=== PATIENT | female | born 1965 | race Caucasian/White ===

== ENCOUNTER 2016-12-09 10:01 | Inpatient (IN) | payer SELFPAY ==
[2016-12-09] VITALS (8 sets, daily range): BP systolic 123–141; BP diastolic 69–82; PULSE 86–95; RESP 14–18; TEMP 97.1–100.8; O2SAT 92–94; Ht 160 cm; Wt 134.1 kg
[~2016-12-09] VITALS: Ht 160 cm; Wt 134.1 kg
[~2016-12-09 10:01] MED LIST: ALBU18HF2 IH; FLUO20CA30 PO; FLUT1DIS3 ORAL INH; LISI-625 PO; RANI150C4 PO
--- OUTSIDE RECORDS SUMMARY | 2016-12-09 10:05 | XMS REPORT ---
Author Author Anyi Johnson [facility] eClinicalWorks Address Unknown Phone Unavailable Care Team Providers Care Manager Country Name Role Phone Anyi Johnson CP Unavailable Allergies No Known Allergies Problems Problem Type Condition Code Onset Dates Condition Status Problem Screening for malignant neoplasm of the rectum V76.41 Active Problem Morbid obesity 278.01 Active Problem Hypertension, benign 401.1 Active Medications No Known Medications Results No Known Results Summary Purpose eClinicalWorks Submission
--- OUTSIDE RECORDS SUMMARY | 2016-12-09 10:06 | XMS REPORT | Continuity of Care Document ---
Author Author [facility] Organization [facility] Address Unknown Phone Unavailable Support Name Relationship Address Phone GUEROVILMA ESCOBEDO DO Caregiver [facility] [address] [address] AGNIESZKA LINDSAY MD Caregiver [address] [place] [address] [phone] KATELIN GOODMAN APRN Caregiver [address] [place] [address] [phone] SHILOH BLEDSOE Next Of Kin [address] [id number] Insurance Providers Payer Name Policy Number Subscriber Name Relationship Self Pay Lori James 20 Self Problems Medical Problems Problem Onset Date Status Left flank pain Unknown Active Left flank pain Unknown Active Abrasion Unknown Active Knee contusion Unknown Active Medications Medication Dose Route Sig Days/Qty Instructions Order Date Discontinued Date Status [Cenesta] 1 PO DAILY 07/10/08 04/30/10 Discontinued Fluticasone Propionate 12 Gm IH TWICE A DAY 07/10/08 04/30/10 Discontinued [Albuterol Inhaler] NEEDED 07/10/08 04/30/10 Discontinued Propoxyphene/Acetaminophen 1 Tab PO 07/10/08 12/10/08 Discontinued Albuterol 17 Gm IH 04/30/10 07/29/11 Discontinued Hydrocodone Bit/Acetaminophen 1 Tab PO Every 6 Hours 07/10/08 Discontinued Sucralfate 1 G PO FOUR TIMES DAILY 07/10/08 04/30/10 Discontinued Fluoxetine Hcl 20 Mg PO DAILY 04/30/10 07/29/11 Discontinued [Percocet] 12/10/08 12/11/08 Discontinued Hydrocodone Bit/Acetaminophen 1 - 2 Tab PO NEEDED 12/11/08 Discontinued Albuterol Sulfate 8.5 Gm IH NEEDED 04/30/10 07/29/11 Discontinued [Premarin] 04/30/10 07/29/11 Discontinued Fluoxetine Hcl 20 Mg PO DAILY 04/03/12 12/02/14 Discontinued Albuterol Sulfate 18 Gm IH NEEDED 04/03/12 Active Fluticasone Propionate 2 Puff IH DAILY 04/03/12 Active [Ranitidine] 12/02/14 Active Cyclobenzaprine HCl 10 Mg PO THREE TIMES A DAY PRN MUSCLE SPASM 40 Qty 12/02/14 Active Social History Social History Problem Response Recorded Date/Time Hx Substance Use No 12/06/2014 12:24pm Hx Alcohol Use Y RARE 12/06/2014 12:24pm Tobacco Usage none 12/02/2014 7:53am Query Response Start Date Stop Date Smoking Status Never smoker Hospital Discharge Instructions No hospital discharge instructions. Plan of Care No plan of care. Functional Status Query Response Date Recorded Physical Hygiene Self December 06, 2014 12:24pm Disabilities Visual December 06, 2014 12:24pm Devices Used Glasses December 06, 2014 12:24pm Dressing Self December 06, 2014 12:24pm Ambulation Self December 06, 2014 12:24pm Diet Self December 06, 2014 12:24pm Mental Status Alert Oriented December 06, 2014 12:24pm Disabilities Visual December 06, 2014 12:24pm Devices Used Glasses December 06, 2014 12:24pm Physical Hygiene Self December 06, 2014 12:24pm Dressing Self December 06, 2014 12:24pm Ambulation Self December 06, 2014 12:24pm Diet Self December 06, 2014 12:24pm Allergies, Adverse Reactions, Alerts Allergen Type Severity Reaction Status Last Updated Penicillin Allergy Unknown HIVES Active 12/06/14 Aspirin Adverse Reaction Unknown N/V Active 12/06/14 Loracarbef Allergy Severe AIRWAY SWELLING Active 12/06/14 Lansoprazole Allergy Unknown ECTOPIC BEATS Active 12/06/14 Immunizations Name Given Type Hx Influenza Vaccination No Historical Hx Pneumococcal Vaccination No Historical Hx Tetanus, Diptheria, Pertussis N UNKNOWN Historical Hx Influenza Vaccination No Historical Hx Tetanus, Diptheria, Pertussis N UNKNOWN Historical Vital Signs Acute Vital Signs Vital Response Date/Time Temperature (Fahrenheit) 97.5 deg F (96.8 - 99.1) Temperature (Calculated Celsius) 36.21961 degrees C (36.0 - 37.3) Pulse Rate (adult) 65 bpm (60 - 100) Respiratory Rate 16 breaths/min (10 - 20) O2 Sat by Pulse Oximetry 98 % (90 - 100) Blood Pressure 138/78 mm Hg Height 5 ft 2 in Weight 394 lb Body Mass Index 72.0 kg/m^2 Results Test Source Date Result Interp. Ref. Range Comments Activated Partial Thromboplast Time June 14, 2012 3:26pm 33.7 SEC N 24-36 Are you ordering this test to rule out VTE Yes Alanine Aminotransferase (ALT/SGPT) December 02, 2014 7:55am 24 U/L N 9-52 Albumin December 02, 2014 7:55am 4.2 G/DL N 3.5-5.0 Albumin/Globulin Ratio December 02, 2014 7:55am 1.2 RATIO N 1.1-2.2 Alkaline Phosphatase December 02, 2014 7:55am 92 U/L N 38-126 Amylase Level December 02, 2014 7:55am 72 U/L N 30-110 Anion Gap December 02, 2014 7:55am 15 MEQ/L N 5-15 Aspartate Amino Transf (AST/SGOT) December 02, 2014 7:55am 19 U/L N 14-36 B-Type Natriuretic Peptide July 29, 2011 6:40am < 15 PG/ML L 15-100 BCR/abl Major (Quant PCR) March 13, 2008 4:02pm Sent out - BUN/Creatinine Ratio December 02, 2014 7:55am 20 RATIO N 6-26 Band Neutrophils # December 02, 2014 7:55am 0.5 T/MM3 - Band Neutrophils % December 02, 2014 7:55am 3.0 % N 0-6 Basophils # (Auto) June 14, 2012 3:26pm 0.0 T/MM3 N 0-0.2 Are you ordering this test to rule out VTE Yes Basophils # (Manual) April 30, 2010 3:41am 0.0 T/MM3 N 0-0.2 Basophils % (Manual) April 30, 2010 3:41am 0.0 % N 0-2 Basophils (%) (Auto) June 14, 2012 3:26pm 0.4 % N 0-2 Are you ordering this test to rule out VTE Yes Blood Urea Nitrogen December 02, 2014 7:55am 16.0 MG/DL N 7-17 C-Reactive Protein March 13, 2008 4:02pm 16.2 MG/L H 3-10 Calcium Level December 02, 2014 7:55am 9.0 MG/DL N 8.4-10.2 Calculated Osmolality December 02, 2014 7:55am 279 MOSM/KG N 261-280 Carbon Dioxide Level December 02, 2014 7:55am 27 MEQ/L N 22-30 Chemistry Specimen Hemolysis December 02, 2014 7:55am < 15 0-25 0-25: No Hemolysis.26-70: Slight Hemolysis - can falsely elevate K and Urine Protein. 71-285: Moderate Hemolysis - can falsely elevate K, Troponin I, CA 19-9, PTH, CSF GLucose, and Urine Protein, and can falsely decrease Phenytoin. 286-999: Gross Hemolysis - can falsely elevate K, Troponin I, CA 19-9, PTH, CSF Glucose, and Urine Protine, and can falsely decrease Phenytoin. Recommend specimen recollection. Chloride Level December 02, 2014 7:55am 102 MEQ/L N 98-107 Cholesterol Level June 15, 2012 9:25am 184 MG/DL N 132-199 Cholesterol/HDL Ratio June 15, 2012 9:25am 4.2 RATIO H 0-4.0 Conjugated Bilirubin June 14, 2012 3:26pm 0.00 MG/DL N 0.00-0.30 Creatinine December 02, 2014 7:55am 0.8 MG/DL N 0.7-1.2 D-Dimer June 14, 2012 3:26pm 208 NG/ML N 0-230 <224 NG/ML= PRESUMPTIVE NEGATIVE FOR PE OR DVT>224 NG/ML=ADDITIONAL EVALUATION FOR PE OR DVT RECOMMENDED Differential Total Cells Counted June 07, 2008 12:26pm 100 % - Eosinophils # (Auto) June 14, 2012 3:26pm 0.2 T/MM3 N 0-0.5 Are you ordering this test to rule out VTE Yes Eosinophils # (Manual) December 02, 2014 7:55am 0.5 T/MM3 N 0-0.5 Eosinophils % (Manual) December 02, 2014 7:55am 3.0 % N 0-4 Eosinophils (%) (Auto) June 14, 2012 3:26pm 1.7 % N 0-4 Are you ordering this test to rule out VTE Yes Erythrocyte Sedimentation Rate March 13, 2008 4:02pm 25 MM/HR - Ferritin March 13, 2008 4:02pm 72.8 NG/ML N 6-137 Flow Cytometry Specimen March 13, 2008 4:02pm Sent out - Globulin December 02, 2014 7:55am 3.5 G/DL N 2.4-3.6 Glomerular Filtration Rate Calc December 02, 2014 7:55am 77 - Glucose Level December 02, 2014 7:55am 108 MG/DL N 65-110 Group A Streptococcus Screen April 30, 2010 3:35am Negative - Strep culture confirmation to follow HDL Cholesterol Direct June 15, 2012 9:25am 44 MG/DL N 40-60 Helicobacter pylori IgG Antibody June 07, 2008 12:26pm Sent out - Hematocrit December 02, 2014 7:55am 44.4 % N 36-46 Hemoglobin December 02, 2014 7:55am 14.4 GM/DL N 12-16 Human Chorionic Gonadotropin, Qual September 10, 2011 2:08pm Negative - Icterus Index December 02, 2014 7:55am < 2 0-7 Immature Granulocyte # (Auto) June 14, 2012 3:26pm 0.02 T/MM3 N 0.00-0.03 Are you ordering this test to rule out VTE Yes Immature Granulocyte % (Auto) June 14, 2012 3:26pm 0.2 % N 0.0-0.5 Are you ordering this test to rule out VTE Yes Influenza Virus Types A,B Antigen December 28, 2007 9:52am Negative - STAT CALL RESULTS TO DR ANGEL LDL Cholesterol, Calculated June 15, 2012 9:25am 140 N 66-159 Lab Scanned Report June 15, 2012 1:48pm LAB TEST FORM REQUEST [id number] - Lipase December 02, 2014 7:55am 162 U/L N 23-300 Lymphocytes # (Auto) June 14, 2012 3:26pm 5.4 T/MM3 H 1-4.8 Are you ordering this test to rule out VTE Yes Lymphocytes # (Manual) December 02, 2014 7:55am 8.4 T/MM3 H 1-4.8 Lymphocytes % (Manual) December 02, 2014 7:55am 54.0 % H 23-45 Lymphocytes (%) (Auto) June 14, 2012 3:26pm 48.3 % H 23-45 Are you ordering this test to rule out VTE Yes Mean Corpuscular Hemoglobin December 02, 2014 7:55am 30.3 UUG N 26-34 Mean Corpuscular Hemoglobin Concent December 02, 2014 7:55am 32.4 GM/DL N 31-37 Mean Corpuscular Volume December 02, 2014 7:55am 93.5 UM3 N 80-100 Mean Platelet Volume December 02, 2014 7:55am 9.6 UM3 N 9.4-12.4 Monocytes # (Auto) June 14, 2012 3:26pm 1.0 T/MM3 H 0-0.8 Are you ordering this test to rule out VTE Yes Monocytes # (Manual) September 10, 2011 2:08pm 0.5 T/MM3 N 0-0.8 Are you ordering this test to rule out VTE Yes Monocytes % (Manual) September 10, 2011 2:08pm 3.0 % N 0-9.0 Are you ordering this test to rule out VTE Yes Monocytes (%) (Auto) June 14, 2012 3:26pm 8.9 % N 0-9.0 Are you ordering this test to rule out VTE Yes Monoscreen April 30, 2010 3:41am Negative - QZ-Eak-G-Type Natriuretic Peptide June 14, 2012 3:26pm 38 PG/ML N 0 -175 Rule in cut points: <50 years old=450; 50-75 years old=900; >75 years old=1800; When utilizing ProBNP rule-in cut points, adjustment for impaired renal function is typically not required. Neutrophils # (Auto) June 14, 2012 3:26pm 4.6 T/MM3 N 1.8-7.7 Are you ordering this test to rule out VTE Yes Neutrophils # (Manual) December 02, 2014 7:55am 6.2 T/MM3 N 1.8-7.7 Neutrophils % (Manual) December 02, 2014 7:55am 40.0 % N 33-66 Neutrophils (%) (Auto) June 14, 2012 3:26pm 40.5 % N 33-66 Are you ordering this test to rule out VTE Yes Platelet Count December 02, 2014 7:55am 455 T/MM3 H 130-400 Potassium Level December 02, 2014 7:55am 3.9 MEQ/L N 3.6-5 Prothromb Time International Ratio June 14, 2012 3:26pm 0.94 N 0.86 -1.10 THERAPUTIC RANGE=2.00-3.00 FOR ANTI-THROMBOSIS THERAPUTIC RANGE=2.50- 3.50 FOR IMPLANTED VALVE RDW Standard Deviation December 02, 2014 7:55am 48.9 FL N 36.9-50.2 Red Blood Count December 02, 2014 7:55am 4.75 M/MM3 N 4.00-5.20 Red Cell Morphology Comment December 02, 2014 7:55am Normal - Sodium Level December 02, 2014 7:55am 144 MEQ/L N 134-144 Tests Not Done November 25, 2009 4:00pm Not done - Thyroid Stimulating Hormone (TSH) June 15, 2012 9:25am 1.84 MIU/L N 0.47-4.68 Total Bilirubin December 02, 2014 7:55am 0.50 MG/DL N 0.20-1.30 Total Protein December 02, 2014 7:55am 7.7 G/DL N 6.3-8.2 Triglycerides Level June 15, 2012 9:25am 151 MG/DL H 35-135 Troponin I June 14, 2012 3:26pm < 0.012 ng/ml 0-0.12 Turbidity December 02, 2014 7:55am < 20 0-20 Unconjugated Bilirubin June 14, 2012 3:26pm 0.20 MG/DL N 0.00-1.10 Urinalysis Comment December 02, 2014 8:50am Microscopic not ind. - Has specimen been collected/obtained? Y Urine Bilirubin December 02, 2014 8:50am Negative - Has specimen been collected/obtained? Y Urine Blood December 02, 2014 8:50am Negative - Has specimen been collected/obtained? Y Urine Collection Type December 02, 2014 8:50am Cleancatch-midstream - Has specimen been collected/obtained? Y Urine Color December 02, 2014 8:50am Yellow - Has specimen been collected/obtained? Y Urine Glucose (UA) December 02, 2014 8:50am Negative - Has specimen been collected/obtained? Y Urine Ketones December 02, 2014 8:50am Negative - Has specimen been collected/obtained? Y Urine Leukocyte Esterase December 02, 2014 8:50am Negative - Has specimen been collected/obtained? Y Urine Nitrite December 02, 2014 8:50am Negative - Has specimen been collected/obtained? Y Urine Protein December 02, 2014 8:50am Negative - Has specimen been collected/obtained? Y Urine RBC March 09, 2008 10:48pm Not Performed - Urine Specific [place] December 02, 2014 8:50am >=1.030 H - Has specimen been collected/obtained? Y Urine Turbidity December 02, 2014 8:50am Clear - Has specimen been collected/obtained? Y Urine Urobilinogen December 02, 2014 8:50am 0.2 EU/DL - Has specimen been collected/obtained? Y Urine WBC March 09, 2008 10:48pm Not Performed - Urine pH December 02, 2014 8:50am 5.5 - Has specimen been collected/ obtained? Y VLDL Cholesterol June 15, 2012 9:25am 30.2 MG/DL H 0-28 White Blood Count December 02, 2014 7:55am 15.5 T/MM3 H 4.5-11.0 Blood Culture Blood April 30, 2010 3:41am NO GROWTH AFTER 5 DAYS Wet Prep Vagina January 10, 2012 2:45pm Group A Streptococcus Culture Throat April 30, 2010 4:45am Helicobacter pylori Rapid Urease Gastric Biopsy July 10, 2008 11:09am Urine Culture Urine, Clean Catch Voided January 04, 2012 11:30am Mixed Gram Positive Organisms Name: LORI JAMES Unit #: [id number] : [id number] Sex: F Loc / Svc: ED DOS: 12/06/14 Signed Report #: [id number] DIAGNOSTIC IMAGING REPORT TYPE OF EXAM: KNEE RIGHT 3 VIEWS Dictated By: ARJUN KNOX MD Indication: ITS.REASON: pain distal of patella after fall KNEE RIGHT 3 VIEWS Comparison: None Findings: There is no acute fracture, dislocation or malalignment identified. There is ] minimal lateral compartment spurring and patellofemoral joint spurring. A significant joint effusion is not seen. The left sunrise view was also obtained. Impression: No definite evidence for fracture is identified. . Procedures Procedure Status Date Provider(s) HYDRATE IV INFUSION ADD-ON completed 12/02/14 THER/PROPH/DIAG INJ IV PUSH completed 12/02/14 TX/PRO/DX INJ NEW DRUG ADDON completed 12/02/14 TX/PRO/DX INJ NEW DRUG ADDON completed 12/02/14 Encounters Encounter Location Date/Time Departed Emergency Room [facility] 12/06/14 12:11pm Departed Emergency Room [facility] 12/02/14 7:31am Recent Diagnosis
--- OUTSIDE RECORDS SUMMARY | 2016-12-09 10:06 | XMS REPORT | Continuity of Care Document ---
Author Author [facility] Organization [facility] Address Unknown Phone Unavailable Support Name Relationship Address Phone KATELIN GOODMAN APRN Caregiver [address] [place] [address] Unavailable BROOKE GARDNER MD Caregiver [address] [facility] [place] [phone] Unavailable SHA COSTELLO Next Of Kin [address] [place] [address] Insurance Providers Guarantor Lori James Address [address] [place] [address] Email [email or web address] Payer Self Pay Subscriber's Name Lori James Relationship 18 Self Chief Complaint and Reason for Visit Chief Complaint Abdominal Pain Reason for Visit Bilateral upper abdominal pain Problems Active Problems Medical Problem Onset Date Status Abrasion Unknown Acute Abrasion Unknown Acute Asthma exacerbation Unknown Acute Cough Unknown Acute Knee contusion Unknown Acute Left flank pain Unknown Acute Left flank pain Unknown Acute Low back pain Unknown Acute Past Problems Medical Problem Onset Date Bilateral upper abdominal pain Unknown Umbilical hernia without obstruction or gangrene Unknown Ventral hernia without obstruction or gangrene Unknown Medications Current Home Medications Medication Dose Units Route Directions Days Qty Instructions Start Date Albuterol Sulfate (Ventolin Hfa) 18 Gm Hfa.aer.ad 1 Puff Inhalation As Needed 04/03/12 Fluoxetine Hcl (Prozac) 20 Mg Capsule 20 Mg Oral Daily 02/24/15 Fluticasone/Salmeterol (Advair 250-50 Diskus) 1 Disk W/Dev Inhaler 2 Puff Oral Inhalation Daily 10/21/15 Lisinopril 5 Mg Tablet 5 Mg Oral Bedtime 10/21/15 Ranitidine Hcl 150 Mg Capsule 150 Mg Oral Daily as needed for Prn Orders 02/24/15 Past Home Medications Medication Directions Ordered Status Albuterol 17 Gm Aer.refill, 17 Gm Inhalation 04/30/10 Discontinued Albuterol Inhaler , As Needed 07/10/08 Discontinued Albuterol Sulfate (Proair Hfa) 8.5 Gm Aerosol, 8.5 Gm Inhalation As Needed Discontinued Cenesta , 1 Oral Daily 07/10/08 Discontinued Fluoxetine Hcl (Prozac) 20 Mg Capsule, 20 Mg Oral Daily 04/03/12 Discontinued Fluoxetine Hcl (Prozac) 20 Mg Capsule, 20 Mg Oral Daily 04/30/10 Discontinued Fluticasone Propionate (Flovent Hfa 110MCG) 12 Gm Inhaler, 12 Gm Inhalation Twice A Day 07/10/08 Discontinued Hydrocodone Bit/Acetaminophen (Lortab 7.5-500 Tablet) 1 Tab Tablet, 1 - 2 Tab Oral As Needed 12/11/08 Discontinued Hydrocodone Bit/Acetaminophen (Lortab 5/500 Tablet) 1 Tab Tablet, 1 Tab Oral Every 6 Hours 07/10/08 Discontinued Percocet , 12/10/08 Discontinued Premarin , 04/30/10 Discontinued Propoxyphene/Acetaminophen (Darvocet-N 100 Tablet) 1 Tab Tablet, 1 Tab Oral 07/10/08 Discontinued Sucralfate (Carafate) 1 G Tablet, 1 G Oral Four Times Daily 07/10/08 Discontinued Social History Social History Problem Response Recorded Date/Time Onset Date Status Chewing Tobacco Status No 06/10/2016 7:01pm Not Applicable Not Applicable Hx Substance Use No 06/10/2016 7:01pm Not Applicable Not Applicable Hx Alcohol Use No 06/10/2016 7:01pm Not Applicable Not Applicable Has the pt used tobacco in the last 12 months No 06/10/2016 8:25am Not Applicable Not Applicable Tobacco Usage none 12/02/2014 7:53am Not Applicable Not Applicable Query Response Start Date Stop Date Smoking Status Never smoker Hospital Discharge Instructions No hospital discharge instructions. Plan of Care Discharge Date 06/10/16 7:55pm Disposition 01 DISCHARGED HOME, SELF-CARE Condition at Discharge Improved Instructions/Education Provided Avoiding Gas-producing Foods Colonoscopy Prescriptions See Medication Section Referrals KATELIN GOODMAN APRN Address: [address] [place] [phone] Additional Instructions/Education Walk as much as you can to help relief gas. May continue to take OTC simethicone or Gas-X. Stay hydrated. Avoid foods that are gas producing. Follow as needed with Dr. Marc. Care Plan and Goals Physician Care Plan Problem: Bilateral Upper abdominal pain Goal: Follow up with primary care provider Instructions: Take medications and follow care plan as discussed/written Functional Status No functional status results. Allergies, Adverse Reactions, Alerts Allergen Type Severity Reaction Status Last Updated Penicillin Allergy Unknown HIVES Active 06/10/16 Aspirin Adverse Reaction Unknown N/V Active 06/10/16 Loracarbef Allergy Severe AIRWAY SWELLING Active 06/10/16 Lansoprazole Allergy Unknown ECTOPIC BEATS Active 06/10/16 Immunizations Query Response on File Recorded Date/Time Hx Influenza Vaccination No 06/09/16 3:58pm Hx Pneumococcal Vaccination No 06/09/16 3:58pm Hx Tetanus, Diptheria, Pertussis N UNKNOWN 12/06/14 12:24pm Hx Influenza Vaccination No 06/09/16 3:58pm Hx Tetanus, Diptheria, Pertussis N UNKNOWN 12/06/14 12:24pm Influenza Vaccine Hx NONE 06/10/16 7:01pm Vital Signs Acute Vital Signs Vital Response Date/Time Temperature (Fahrenheit) 98.0 deg F (96.8 - 99.1) 06/10/2016 7:55pm Temperature (Calculated Celsius) 36.75331 degrees C (36.0 - 37.3) 06/10/2016 7:55pm Temperature Source Temporal 06/10/2016 10:00am Pulse Rate (adult) 88 bpm (60 - 100) 06/10/2016 7:55pm Respiratory Rate 16 breaths/min (10 - 20) 06/10/2016 7:55pm O2 Sat by Pulse Oximetry 95 % (90 - 100) 06/10/2016 7:55pm Oxygen Delivery Method Room Air 06/10/2016 10:45am Blood Pressure 140/68 mm Hg 06/10/2016 7:55pm Blood Pressure Source Automatic Cuff 06/10/2016 10:45am Height (Feet) 5 feet 06/10/2016 6:23pm Height (Inches) 3.00 inches 06/10/2016 6:23pm Weight (Kilograms) 132.400 kg 06/10/2016 6:23pm Body Mass Index (BMI) 51.0 06/10/2016 6:23pm Results No known relevant diagnostic tests, laboratory data and/or discharge summary. Procedures Procedure Status Date Provider(s) Colonoscopy Completed 06/10/16 ELIZABETH MARC MD Esophagogastroduodenoscopy (EGD) with closed biopsy Completed 06/10/16 ELIZABETH MARC MD Encounters Encounter Location Arrival/Admit Date Discharge/Depart Date Attending Provider Departed Emergency Room [facility] 06/10/16 6:17pm 06/10/16 7: 55pm BROOKE GARDNER MD Departed [facility] Day [facility] 06/10/16 8:19am 06/10/16 10 :46am ELIZABETH MARC MD Registered Clinic [facility] 06/01/16 8:47am KATELIN GOODMAN APRN Registered [facility] 05/27/16 4:06pm DELMA DEMARCO APRN Recent Diagnosis
--- OUTSIDE RECORDS SUMMARY | 2016-12-09 10:07 | XMS REPORT | Continuity of Care Document ---
Author Author [facility] Organization [facility] Address Unknown Phone Unavailable Support Name Relationship Address Phone RAKAN VELAZQUEZ MD Caregiver [address] [place] [address] [place] [address] AGNIESZKA LINDSAY MD Caregiver [address] [place], [place] [phone] SHILOH BLEDSOE Next Of Kin [address] [place], [place] [phone] Insurance Providers Payer Name Policy Number Subscriber Name Relationship Self Pay Lori James 18 Self Advance Directives Directive Response Recorded Date/Time Advanced Directives Type None 12/02/14 8:37am Problems Medical Problems Problem Onset Date Status Left flank pain Unknown Active Left flank pain Unknown Active Medications Medication Dose Route Sig [...] PRN MUSCLE SPASM 40 Qty 12/02/14 Active Tramadol HCl 1-2 Tab PO Q6H/0300,0900,1500,2100 PRN flank pain 20 Qty 12/02/14 Active Social History Social History Problem Response Recorded Date/Time Hx Substance Use No 12/02/2014 8:32am Hx Alcohol Use No 12/02/2014 8:32am Tobacco Usage none 12/02/2014 7:53am Query Response Start Date Stop Date Smoking Status Never smoker Hospital Discharge Instructions No hospital discharge instructions. Plan of Care No plan of care. Functional Status Query Response Date Recorded Physical Hygiene Self December 02, 2014 8:32am Disabilities Visual December 02, 2014 8:32am Devices Used Glasses December 02, 2014 8:32am Dressing Self December 02, 2014 8:32am Ambulation Self December 02, 2014 8:32am Diet Self December 02, 2014 8:32am Mental Status Alert December 02, 2014 8:52am Disabilities Visual December 02, 2014 8:32am Devices Used Glasses December 02, 2014 8:32am Physical Hygiene Self December 02, 2014 8:32am Dressing Self December 02, 2014 8:32am Ambulation Self December 02, 2014 8:32am Diet Self December 02, 2014 8:32am Allergies, Adverse Reactions, Alerts Allergen Type Severity Reaction Status Last Updated Penicillin Allergy Unknown HIVES Active 12/02/14 Aspirin Adverse Reaction Unknown N/V Active 12/02/14 Loracarbef Allergy Severe AIRWAY SWELLING Active 12/02/14 Lansoprazole Allergy Unknown ECTOPIC BEATS Active 12/02/14 Immunizations Name Given Type Hx Influenza Vaccination No Historical Hx Pneumococcal Vaccination No Historical Hx Tetanus, Diptheria, Pertussis Y UNKNOWN Historical Hx Influenza Vaccination No Historical Hx Tetanus, Diptheria, Pertussis Y UNKNOWN Historical Vital Signs Acute Vital Signs Vital Response Date/Time Temperature (Fahrenheit) 97.7 deg F (96.8 - 99.1) Temperature (Calculated Celsius) 36.44879 degrees C (36.0 - 37.3) Pulse Rate (adult) 95 bpm (60 - 100) Respiratory Rate 20 breaths/min (10 - 20) O2 Sat by Pulse Oximetry 95 % (90 - 100) Blood Pressure 131/72 mm Hg Height 5 ft 2 in Weight 292 lb Body Mass Index 53.0 kg/m^2 Results Test Source Date Result Interp. [...] 15, 2012 1:48pm LAB TEST FORM REQUEST [id number] - Lipase December 02, 2014 7:55am 162 [...] Monoscreen April 30, 2010 3:41am Negative - WG-Hmg-J-Type Natriuretic Peptide June 14, 2012 3:26pm 38 [...] 2008 10:48pm Not Performed - Urine Specific [place] December 02, 2014 8:50am >=1.030 H - [...] Positive Organisms Name: LORI JAMES Unit #: [id number] : 1965 Sex: F Loc / Svc: ED DOS: 12/02/14 Signed Report #: [id number] DIAGNOSTIC IMAGING REPORT TYPE OF EXAM: CT RENAL W/O CONTRAST Dictated By: MANJIT PINTO MD Indication: ITS.REASON: left flank pain CT RENAL W/O CONTRAST: Comparison: None Technique: Axial CT images were performed through the abdomen and pelvis without intravenous contrast. Findings: The lung bases are clear. The unenhanced liver appears grossly normal. The gallbladder, pancreas and adrenal glands are within normal limits. The spleen appears to be surgically absent. Fat containing umbilical hernia. Kidneys show no stone disease or hydronephrosis. No ureteral stones. Bladder is decompressed and unremarkable. The uterus is surgically absent. No free fluid. No evidence of bowel obstruction. Small and large bowel are unremarkable. Bone windows are unremarkable. Impression: No urolithiasis or clear etiology for the patient's left flank pain. . Procedures No known history of procedures. Encounters Encounter Location Date/Time Registered Emergency Room [facility] 12/02/14 7:31am Recent Diagnosis
--- OUTSIDE RECORDS SUMMARY | 2016-12-09 10:07 | XMS REPORT ---
Author Author Anyi Johnson [facility] eClinicalWorks Address Unknown Phone Unavailable Care Team Providers Care Treatment Coordinator Name Role Phone Anyi Johnson CP Unavailable Allergies No Known Allergies Problems Problem Type Condition Code Onset Dates Condition Status Problem Screening for malignant neoplasm of the rectum V76.41 Active Problem Morbid obesity 278.01 Active Problem Hypertension, benign 401.1 Active Medications No Known Medications Results No Known Results Summary Purpose eClinicalWorks Submission
--- OUTSIDE RECORDS SUMMARY | 2016-12-09 10:07 | XMS REPORT ---
Author Author Anyi Johnson [facility] eClinicalWorks Address Unknown Phone Unavailable Care Team Providers Care Powder Monkey Name Role Phone Anyi Johnson CP Unavailable Allergies No Known Allergies Problems Problem Type Condition Code Onset Dates Condition Status Problem Screening for malignant neoplasm of the rectum V76.41 Active Problem Morbid obesity 278.01 Active Problem Hypertension, benign 401.1 Active Medications No Known Medications Results No Known Results Summary Purpose eClinicalWorks Submission
--- OUTSIDE RECORDS SUMMARY | 2016-12-09 10:07 | XMS REPORT ---
Author Author Harini Flores [facility] eClinicalWorks Address Unknown Phone Unavailable Care Team Providers Care Director Telehealth Name Role Phone Harini Flores Unavailable Allergies, Adverse Reactions, Alerts Substance Reaction Event Type Penicillin anaphylaxis Drug Allergy Prevacid irregular heart beat Drug Allergy Aspirin vomiting Drug Allergy lorabid anaphylaxis Non Drug Allergy Problems Problem Type Condition Code Onset Dates Condition Status Problem Screening for malignant neoplasm of the rectum V76.41 Active Problem Morbid obesity 278.01 Active Problem Hypertension, benign 401.1 Active Assessment Shortness of breath R06.02 Active Medications Medication Code System Code Instructions Start Date End Date Status Dosage Albuterol Sulfate [facility] [address]-70 (2.5 MG/3ML) 0.083% Inhalation Three times a day May 31, 2016 3 ml Lisinopril [facility] [address]-86 5 MG Orally Once a day December 04, 2014 1 tab Advair Diskus [facility] [address]-61 250-50 MCG/DOSE Inhalation Twice a day March 07, 2015 1 puff Levaquin [facility] [address]-15 750 MG Orally every 24 hrs May 31, 2016 Jun 07, 2016 1 tablet Furosemide [facility] [address]-92 20 MG Orally Once a day Oct 09, 2013 1/ 2 - 1 tab Ventolin HFA [facility] [address]-69 108 (90 Base) MCG/ACT Inhalation every 4-6 hrs 2 puffs as needed Fluoxetine HCl [facility] [address]-82 20 MG Orally Once a day 2 capsule in the morning PredniSONE [facility] [address]-81 20 MG Orally Once a day May 31, 2016Jun 3 tablet with food or milk Procedures Procedure Coding System Code Date OFFICE VISIT, EST-LOW COMPLEXITY (15 MIN.) CPT-4 77493 May 31, 2016 Vital Signs Date/Time: May 31, 2016 Temperature 98.9 F Height 64 in Weight 293 lbs Blood Pressure Diastolic 72 mm Hg Blood Pressure Systolic 118 mm Hg Cardiac Monitoring Heart Rate 94 /min BMI 50.29 Index Oximetry 95 % Respiratory Rate 16 /min Results No Known Results Summary Purpose eClinicalWorks Submission
[2016-12-09] MEDS ORDERED: TIOT18CA3 ORAL INH (10:17)
[2016-12-09] MEDS ORDERED: FURO20TA4 PO (10:19)
[2016-12-09] MEDS ORDERED: NORMAL SALINE 500 ML IV ONE (10:45)
--- NOTE | 2016-12-09 10:50 | NUR ---
IV LOCK IV LOCK STARTED AND BLOOD DRAWN FOR LAB.
[2016-12-09] MEDS ORDERED: NORMAL SALINE 100 ML ONE (10:56)
[2016-12-09] MEDS ORDERED: SALINE FLUSH 10ml SYRINGE ONE (10:56)
[2016-12-09] MEDS ORDERED: IOHEXOL 300 MG/ML 75ml INJECTION ONE (10:56)
[2016-12-09 11:14] LABS: ANION GAP 11 MEQ/L (5-15); BUN/CREATININE RATIO 23 RATIO (6-26); CALCIUM 9.3 MG/DL (8.4-10.2); CHLORIDE 102 MEQ/L (98-107); CO2 - CARBON DIOXIDE 28 MEQ/L (22-30); CREATININE 0.7 MG/DL (0.7-1.2); GLOMERULAR FILTRATION RATE 89; GLUCOSE 132 MG/DL (65-110); POTASSIUM 4.5 MEQ/L (3.6-5); SODIUM 141 MEQ/L (134-144)
--- NOTE | 2016-12-09 11:18 | NUR ---
CT PT. TO CT PER CART.
--- NOTE | 2016-12-09 11:31 | NUR ---
CT PT. RETURNS FROM CT.
--- OUTSIDE RECORDS SUMMARY | 2016-12-09 11:36 | XMS REPORT | Continuity of Care Document ---
Author Author [facility] Organization [facility] Address Unknown Phone Unavailable Support Name Relationship Address Phone GUEROVILMA ESCOBEDO DO Caregiver [facility] [address] [place] [address] AGNIESZKA LINDSAY MD Caregiver [address] [place] [address] [phone] KATELIN GOODMAN APRN Caregiver [address] [place] [address] [phone] SHILOH BLEDSOE Next Of Kin [address] [phone] Insurance Providers Payer Name Policy Number Subscriber [...] F (96.8 - 99.1) Temperature (Calculated Celsius) 36.60681 degrees C (36.0 - 37.3) Pulse Rate [...] 15, 2012 1:48pm LAB TEST FORM REQUEST [id number] - Lipase December 02, 2014 7:55am 162 [...] Monoscreen April 30, 2010 3:41am Negative - MB-Xnm-Y-Type Natriuretic Peptide June 14, 2012 3:26pm 38 [...] 2008 10:48pm Not Performed - Urine Specific [place] December 02, 2014 8:50am >=1.030 H - [...] Positive Organisms Name: LORI JAMES Unit #: [id number] : [id number] Sex: F Loc / Svc: ED DOS: 12/06/14 Signed Report #: [id number] DIAGNOSTIC IMAGING REPORT TYPE OF EXAM: KNEE [...] Encounters Encounter Location Date/Time Departed Emergency Room [facility] 12/06/14 12:11pm Departed Emergency Room [facility] 12/02/14 7:31am Recent Diagnosis
--- OUTSIDE RECORDS SUMMARY | 2016-12-09 11:37 | XMS REPORT | Continuity of Care Document ---
Author Author [facility] Organization [facility] Address Unknown Phone Unavailable Support Name Relationship Address Phone RAKAN VELAZQUEZ MD Caregiver [address] [place] [address] [place] [address] AGNIESZKA LINDSAY MD Caregiver [address] [place], [place] [phone] SHILOH BLEDSOE Next Of Kin [address] [place], [place] [phone] Insurance Providers Payer Name Policy Number Subscriber [...] F (96.8 - 99.1) Temperature (Calculated Celsius) 36.00527 degrees C (36.0 - 37.3) Pulse Rate [...] 15, 2012 1:48pm LAB TEST FORM REQUEST [id number] - Lipase December 02, 2014 7:55am 162 [...] Monoscreen April 30, 2010 3:41am Negative - FK-Oci-E-Type Natriuretic Peptide June 14, 2012 3:26pm 38 [...] 2008 10:48pm Not Performed - Urine Specific [place] December 02, 2014 8:50am >=1.030 H - [...] Positive Organisms Name: LORI JAMES Unit #: [id number] : [id number] Sex: F Loc / Svc: ED DOS: 12/02/14 Signed Report #: [id number] DIAGNOSTIC IMAGING REPORT TYPE OF EXAM: CT [...] Encounters Encounter Location Date/Time Registered Emergency Room [facility] 12/02/14 7:31am Recent Diagnosis
--- NOTE | 2016-12-09 11:41 | ERPDOC ---
Departure Disposition Decision Date: Dec 09, 2016 Disposition Decision Time: 12:20 Disposition: 02 TO [facility] Impression Impression Impression: Primary Impression: Tonsillitis Severity: Moderate Condition: Improved Seen By: Physician only Referrals: KATELIN GOODMAN APRN (Family) Problems/Meds/Labs Reviewed?: Yes Medications reviewed and manag: Yes Follow up care ordered?: Yes Mental Status: Alert, Oriented HPI - General Medical General Chief Complaint: Throat Pain/Injury Stated Complaint: PAINFUL SWALLOWING, N/V, FEVER Time Seen by Provider: 10:05 Source: patient Exam Limitations: no limitations HPI - General Medical Initial Comments 51-year-old female presents to the emergency department with a chief complaint of painful swallowing and feeling like her throat is swollen. Patient noted onset of symptoms one day ago. Symptoms have been persistent in nature since onset. She was at home when her symptoms began. Patient describes the pain as a moderate discomfort in her throat. It is sharp. No radiation. It increases with swallowing and improves with rest and analgesia. Patient denies any other complaints or associated symptoms. She does note that her voice sounds somewhat different to her. Patient's symptoms have had a gradual progression since onset. Occurred At: home Onset: Gradual Allergies: Coded Allergies: loracarbef (Verified Allergy, Severe, AIRWAY SWELLING, 12/09/16) Penicillins (Verified Allergy, Unknown, HIVES, 12/09/16) lansoprazole (Verified Allergy, Unknown, ECTOPIC BEATS, 12/09/16) aspirin (Verified Adverse Reaction, Unknown, N/V, 12/09/16) Past History Past Medical History Metabolic: cancer Respiratory: asthma GI: GERD, IBS Musculoskeletal: back pain Psychological: depression Surgical History General: EGD, appendix, colonoscopy, tonsils Cardiac: cardiac cath Reproductive/: , hysterectomy, other Joint: shoulder Family History Family PMH: FOUND: [place], diabetes, hypertension Vaccines Hx Influenza Vaccination: No Hx Pneumococcal Vaccination: No Hx Tetanus, Diptheria, Pertuss: No (UNKNOWN) Social History Smoking Status: Never smoker Does patient use chewing tobac: No Second Hand Exposure: No Substance Use Type: does not use Alcohol Intake: none Review of Systems Constitutional Constitutional: DENIES: chills, fever Eyes General: DENIES: erythema, exudate Lids/Accessories: DENIES: erythema, swelling Vision: DENIES: acuity, blurring ENMT Ears: DENIES: drainage, erythema Hearing: DENIES: hearing loss Balance: DENIES: ataxia, falling to one side Sinuses: DENIES: congestion, pain Nose: DENIES: nosebleeds, pain Mouth/Throat: painful swallowing, sore throat, DENIES: drooling Teeth: DENIES: pain Jaw: DENIES: pain Cardiovascular Cardiac: DENIES: chest pain, dyspnea on exertion Rhythm/Rate: DENIES: irregular beat, palpitations Vascular: DENIES: pedal edema, unilateral swelling Pulmonary Respiratory: DENIES: cough, dyspnea, pleuritic chest pain, sputum GI Upper Abdomen: nausea, DENIES: pain, vomiting Lower Abdomen: DENIES: diarrhea, pain General: DENIES: dysuria, pain Musculoskeletal General: DENIES: pain, tenderness Integumentary Skin: DENIES: itching, rash Neurological General: DENIES: headache, numbness, weakness Psychiatric Psychiatric: DENIES: emotional instability, suicidal ideation/attempt Endocrine Endocrine: DENIES: polydipsia, polyphagia Hematologic/Lymphatic Hematologic/Lymphatic: DENIES: frequent nosebleeds, lymphadenopathy Allergic/Immunological Allergic/Immunoligical: DENIES: frequent infections, hives Physical Exam General General Nourishment: well nourished, well developed, appears stated age, no acute distress, adult General Body Habitus: well groomed Vitals and Pain First Documented Vital Signs Date Time Temp Pulse Resp B/P Pulse Ox O2 Delivery O2 Flow Rate FiO2 12/09/16 10:05 99.7 99 20 133/71 96 Room Air Weight: Kilograms: 128.200 Height (feet): 5 Height (inches): 3.00 Triage Pain Scale: RN VS reviewed by Provider: Yes Normal Exams: Head: Normocephalic w/o trauma Eyes: Pupils are PERRLA w/ EOMI, No scleral icterus, irritation, or foreign bodies noted ENMT: No facial trauma, nasal exudates Dental: No fractured, loose, or missing teeth noted Neck: Full range of motion, without adenopathy, JVD, bruits or thyromegaly Chest/Resp: Clear all wilkerson, with good airflow, and symmetry bilaterally CV: Regular rate and rhythm, without murmur or gallop, Pulses 2+ all extremities, capillary refill, <2 seconds all ext., no pedal edema noted Abdomen: Bowel sounds positive, soft, non-tender, non-distended, no hepatosplenomegaly, masses or bruits noted Lymphatic: No lymphadenopathy, or lymphedema noted Musculoskeletal: No tenderness, or deformity noted, good range of motion, all extremities Integumentary: No rashes, hives, or bruising noted, hair and nails, without abnormality Neurologic: Patient is alert, and oriented, cranial nerves, motor/sensory/ cerebellar, exams w/o gross deficits, to observation Psychiatric: Patient exhibits, appropriate attention, emotion and affect ENMT (brief) Comments Oral - mild pharyngeal erythema. Positive tonsillar exudate. Uvula midline. Voice is normal. Handling secretions without difficulty. No sign of abscess. Differential Diagnoses Considering: Metabolic, Other (pharyngitis/tonsillitis/abscess) Progress Results/Orders Orders Procedure Category Date Status Time Bmp - Basic Metabolic LAB 12/09/16 Complete Panel Normal Saline (Ns) PHA 12/09/16 Complete 10:45 Ct Neck W/Contrast CT 12/09/16 Resulted 10:38 Iohexol (Omnipaque) PHA 12/09/16 Complete 10:56 Normal Saline (Ns) PHA 12/09/16 Complete 10:56 Saline Flush (Iv PHA 12/09/16 Complete Flush) 10:56 Strep A Antigen Screen LAB 12/09/16 Complete 11:17 Influenza A/B Screen LAB 12/09/16 Complete 11:17 Dexamethasone Inj PHA 12/09/16 Complete (Decadron) 12:15 Clindamycin 900mg PHA 12/09/16 Complete Ivpb (Cleocin) 12:30 Cbc W/Auto LAB 12/09/16 Complete Diff-Reflex Manual Place In Facility: ED ADM 12/09/16 Transmitted 12:27 Lab Results Laboratory Tests Test 12/09/16 10:57 12/09/16 11:35 White Blood Count 28.9T/MM3 Red Blood Count 4.81M/MM3 Hemoglobin 14.9GM/DL Hematocrit 45.0% Mean Corpuscular Volume 93.6UM3 Mean Corpuscular Hemoglobin 31.0UUG Mean Corpuscular Hemoglobin Concent 33.1GM/DL RDW Standard Deviation 48.8FL Platelet Count 421T/MM3 Mean Platelet Volume 10.7UM3 Immature Granulocyte % (Auto) % Neutrophils (%) (Auto) % Lymphocytes (%) (Auto) % Monocytes (%) (Auto) % Eosinophils (%) (Auto) % Basophils (%) (Auto) % Absolute Immature Granulocyte (auto T/MM3 Absolute Neutrophils (auto) T/MM3 Absolute Lymphocytes (auto) T/MM3 Absolute Monocytes (auto) T/MM3 Absolute Eosinophils (auto) T/MM3 Absolute Basophils (auto) T/MM3 Neutrophils % (Manual) 75.0% Band Neutrophils % 4.0% Lymphocytes % (Manual) 18.0% Monocytes % (Manual) 3.0% Absolute Neutrophils (Manual) 21.7T/MM3 Band Neutrophils # 1.2T/MM3 Lymphocytes # (Manual) 5.2T/MM3 Monocytes # (Manual) 0.9T/MM3 Red Cell Morphology Comment Normal Turbidity < 20 Sodium Level 141MEQ/L Potassium Level 4.5MEQ/L Chloride Level 102MEQ/L Carbon Dioxide Level 28MEQ/L Anion Gap 11MEQ/L Blood Urea Nitrogen 16.0MG/DL Creatinine 0.7MG/DL Glomerular Filtration Rate Calc 89 BUN/Creatinine Ratio 23RATIO Glucose Level 132MG/DL Calculated Osmolality 274MOSM/KG Calcium Level 9.3MG/DL Icterus Index < 2 Chemistry Specimen Hemolysis < 15 Influenza Type A Antigen Negative Influenza Type B Antigen Negative Group A Streptococcus Screen Positive Medications Current ED Medications Sodium Chloride (NS) 500 ml @ 999 mls/hr Q31M ONCE IV Last administered on 10:57; Start 12/09/16 at 10:45; Stop 12/09/16 at 11:15; Status DC Iohexol 1 bottle 1 bottle STK-MED ONCE .ROUTE ; Start 12/09/16 at 10:56; Stop at 10:57; Status DC Sodium Chloride (NS) 100 ml @ As Directed STK-MED ONCE .ROUTE ; Start 12/09/16 at 10:56; Stop 12/09/16 at 10:57; Status DC Sodium Chloride (Iv Flush) 10 ml STK-MED ONCE .ROUTE ; Start 12/09/16 at 10:56; Stop 12/09/16 at 10:57; Status DC Dexamethasone Sodium Phosphate (Decadron) 10 mg O ONCE IV Last administered on 12/09/16 12:21; Start 12/09/16 at 12:15; Stop 12/09/16 at 12:16; Status DC Clindamycin HCl/ Dextrose (Cleocin) 900 mg O ONCE IV ; Start 12/09/16 at 12:15 ; Stop 12/09/16 at 12:16; Status Cancel Progress Progress Imaging is discussed in detail with the patient and questions are answered. Patient is given IV hydration gently. Patient is given clindamycin 900 mg IV times one. Patient is given Decadron 10 mg IV times one. Patient is discussed with ENT Dr. Staples who is in agreement with the current plan of management. Patient is admitted to the service of the hospitalist in improved condition for further evaluation and treatment. Hospitalist requests CBC with differential to be added to the evaluation. CBC is added and will be followed by the hospitalist. CBC is pending at the time of admission to the hospital. Patient is admitted to the hospital in improved condition. Patient is in agreement with the current plan of management. No further orders from consulting or accepting physicians who are in agreement with the current plan of management. Patient is in agreement with the current plan of management. Patient was admitted to the service of Dr. Moy in improved condition. CT CT : CT: Other (soft-tissue neck:) Interpretation: Abnormal, Reviewed Written Report (tonsillitis with mild edema mildly encroaching on the patient's airway. Airway is patent. No sign of abscess.) WENDY BROOKS DO Dec 09, 2016 11:41
--- NOTE | 2016-12-09 11:48 | DI ---
Indication: ITS.REASON: throat pain PROCEDURE: CT NECK W/CONTRAST: Encounter: Initial Comparison: None Technique: Axial CT images were performed through the neck with intravenous contrast. Coronal and sagittal two-dimensional reformats Automated Exposure Control and Iterative Reconstruction dose reducing techniques were utilized. Contrast: Omnipaque 300 74 mL Findings: The lung apices are grossly clear. Attenuation artifact due to patient body habitus. Thyroid gland is grossly normal. Submandibular glands are normal and symmetric as are the parotid glands. There are enlarged lymph nodes in the submandibular chains bilaterally. This measures up to 1.5 cm in short axis on the right on image #38 and 1.6 cm on the left at this same level. There is abnormal soft tissue thickening in the right tongue base and tonsillar area. This causes mild narrowing of the traversing airway. The abnormal tissue is somewhat ill-defined but measures approximately 3.7 cm in craniocaudal dimension and up to 5.6 cm transversely on coronal image #27. There is no discrete fluid collection or abscess identified. Bone windows show degenerative changes in the spine. Impression: Inflammation and enhancing tissue in the area of the right palatine tonsil with bilateral lymphadenopathy. Findings are probably due to acute tonsillitis without abscess with reactive lymphadenopathy. ENT consultation is recommended for direct visualization to exclude any possible neoplastic process. .
[2016-12-09 12:01] LABS: INFLUENZA A AG SCREEN NEGATIVE (NEGATIVE)
[2016-12-09 12:02] LABS: INFLUENZA B AG SCREEN NEGATIVE (NEGATIVE)
[2016-12-09] MEDS ORDERED: CLINDAMYCIN 900mg in D5W 50ml IV ONE (12:15)
[2016-12-09] MEDS ORDERED: DEXAMETHASONE 4mg/ml - 1ml INJECTION IV ONE (12:15)
[2016-12-09] MEDS ORDERED: CLINDAMYCIN 900mg IVPB 50 ML IV ONE (12:30)
[2016-12-09 12:37] LABS: HGB - HEMOGLOBIN 14.9 GM/DL (12-16); MEAN CORPUSCULAR HGB CONC(MCHC 33.1 GM/DL (31-37); MEAN CORPUSCULAR VOLUME 93.6 UM3 (80-100); MEAN PLATELET VOLUME 10.7 UM3 (9.4-12.4); RED BLOOD COUNT 4.81 M/MM3 (4.00-5.20)
--- OUTSIDE RECORDS SUMMARY | 2016-12-09 12:37 | XMS REPORT | Continuity of Care Document ---
Author Author [facility] Organization [facility] Address Unknown Phone Unavailable Support Name Relationship Address Phone GUEROVILMA ESCOBEDO DO Caregiver [facility] [address] [place] [address] AGNIESZKA LINDSAY MD Caregiver [address] [place] [address] [phone] KATELIN GOODMAN APRN Caregiver [address] [place] [address] [phone] SHILOH BLEDSOE Next Of Kin [address] [phone] Insurance Providers Payer Name Policy Number Subscriber [...] F (96.8 - 99.1) Temperature (Calculated Celsius) 36.99782 degrees C (36.0 - 37.3) Pulse Rate [...] 15, 2012 1:48pm LAB TEST FORM REQUEST [id number] - Lipase December 02, 2014 7:55am 162 [...] Monoscreen April 30, 2010 3:41am Negative - DU-Ols-E-Type Natriuretic Peptide June 14, 2012 3:26pm 38 [...] 2008 10:48pm Not Performed - Urine Specific [place] December 02, 2014 8:50am >=1.030 H - [...] Positive Organisms Name: LORI JAMES Unit #: [id number] : [id number] Sex: F Loc / Svc: ED DOS: 12/06/14 Signed Report #: [id number] DIAGNOSTIC IMAGING REPORT TYPE OF EXAM: KNEE [...] Encounters Encounter Location Date/Time Departed Emergency Room [facility] 12/06/14 12:11pm Departed Emergency Room [facility] 12/02/14 7:31am Recent Diagnosis
--- OUTSIDE RECORDS SUMMARY | 2016-12-09 12:38 | XMS REPORT | Continuity of Care Document ---
Author Author [facility] Organization [facility] Address Unknown Phone Unavailable Support Name Relationship Address Phone RAKAN VELAZQUEZ MD Caregiver [address] [place] [address] [place] [address] AGNIESZKA LINDSAY MD Caregiver [address] [place], [place] [phone] SHILOH BLEDSOE Next Of Kin [address] [place], [place] [id number] Insurance Providers Payer Name Policy Number Subscriber [...] F (96.8 - 99.1) Temperature (Calculated Celsius) [phone] degrees C (36.0 - 37.3) Pulse Rate [...] 15, 2012 1:48pm LAB TEST FORM REQUEST [id number] - Lipase December 02, 2014 7:55am 162 [...] Monoscreen April 30, 2010 3:41am Negative - FZ-Hly-[id number]-Type Natriuretic Peptide June 14, 2012 3:26pm 38 [...] 2008 10:48pm Not Performed - Urine Specific [place] December 02, 2014 8:50am >=1.030 H - [...] Positive Organisms Name: LORI JAMES Unit #: [id number] : [id number] Sex: F Loc / Svc: ED DOS: 12/02/14 Signed Report #: [id number] DIAGNOSTIC IMAGING REPORT TYPE OF EXAM: CT [...] Encounters Encounter Location Date/Time Registered Emergency Room [facility] 12/02/14 7:31am Recent Diagnosis
[2016-12-09 12:42] LABS: WBC - WHITE BLOOD COUNT 28.9 T/MM3 (4.5-11.0)
--- NOTE | 2016-12-09 12:52 | NUR ---
REPORT REPORT GIVEN TO ZACHARY ROGEL ON MEDICAL UNIT. GURPREET HICKMAN APRN IN TO SEE PT.
--- NOTE | 2016-12-09 13:00 | NUR ---
ADMISSION NOTE CLINDAMYCIN IV INFUSED AND IV LOCKED. PT. TAKEN TO RM 141 PER WHEELCHAIR.
--- NOTE | 2016-12-09 13:00 | NUR ---
ARRIVAL TO FLOOR PT ARRIVED TO MEDICAL UNIT AT THIS TIME, VIA WHEELCHAIR. PT ABLE TO TRANSFER SELF FROM WHEELCHAIR TO BED WITHOUT ASSIST. VITAL SIGNS STABLE AT THIS TIME, PT HAS TEMPERATURE OF 100.8 AND OXYGEN SATURATION IN BETWEEN 89-92%. PT PLACED ON 1 L O2 AT THIS TIME. WILL CONTINUE TO MONITOR.
[2016-12-09 13:03] LABS: BAND NEUTROPHILS # 1.2 T/MM3; LYMPHOCYTES # (MANUAL) 5.2 T/MM3 (1-4.8); MONOCYTES # (MANUAL) 0.9 T/MM3 (0-0.8); NEUTROPHILS #(MANUAL)-ABSOLUTE 21.7 T/MM3 (1.8-7.7); TOTAL CELLS COUNTED 100 %
--- NOTE | 2016-12-09 13:51 | HPPDOC ---
GURPREET HICKMAN V PACKAGING ASSOCIATE 12/09/16 1343: HPI - Adult Date DATE: 12/09/16 TIME: 13:08 General Chief Complaint: Throat pain with swelling History of Present Illness Lori is a 51 year old female who presented the emergency room today for evaluation of throat pain and swelling. Reports that symptoms started somewhat suddenly this morning at approximately 5 a.m. She felt like she was congested and could not breathe. She has had some diarrhea stools intermittently for the past week. On arrival to the emergency room her temperature was found to be 99.7 , however, did increase to 101.4 at time of admission. Pulse in the 90s, respiration rate 20, blood pressure 133/71, room air saturations 96%. Laboratory studies were obtained. Patient was found to have significant leukocytosis 28.9, Hgb 14.9, Hct 45, Plt 421, Neutrophils 75%, 4% bandemia. Sodium 141, Potassium 4.5, BUN 16, Dialer 0.7, Glucose 132. Strep throat was found to be positive. Influenza A and B are both negative. Soft tissue neck CT showed inflammatory enhancing tissue in the area of right palatine tonsil with bilateral lymphadenopathy. Findings are probably due to acute tonsillitis without abscess with reactive lymphadenopathy. Patient reports history of Tonsillectomy. She was given Clindamycin in the emergency room for antimicrobial coverage. The hospitalist services were contacted and accepted patient for inpatient admission for further evaluation and treatment. Past Medical History Past Medical History Hypertension. 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 De Los Santos) Colonoscopy- 2015 ( [facility]) Bilateral Breast Reduction- 1997 Collagen implants in the Urethra ([place]) Current Medications Home Meds Reported Medications Furosemide (Furosemide) 20 Mg Tablet, 10 MG PO DAILY 12/09/16 Tiotropium [place] (Spiriva) 1 Cap Inhaler, 1 CAP ORAL INH DAILY 12/09/16 Fluticasone/Salmeterol (Advair 250-50 Diskus) 1 Disk W/Dev Inhaler, 2 PUFF ORAL INH DAILY 10/21/15 Lisinopril (Lisinopril) 5 Mg Tablet, 5 MG PO HS, TAB 10/21/15 Ranitidine HCl (Ranitidine HCl) 150 Mg Capsule, 150 MG PO DAILY Y for PRN ORDERS 02/24/15 Fluoxetine HCl (Prozac) 20 Mg Capsule, 20 MG PO DAILY 02/24/15 Albuterol Sulfate (Ventolin Hfa) 18 Gm Hfa.aer.ad, 1 PUFF IH PRN 04/03/12 Allergies: Coded Allergies: loracarbef (Verified Allergy, Severe, AIRWAY SWELLING, 12/09/16) Penicillins (Verified Allergy, Unknown, HIVES, 12/09/16) lansoprazole (Verified Allergy, Unknown, ECTOPIC BEATS, 12/09/16) aspirin (Verified Adverse Reaction, Unknown, N/V, 12/09/16) Family History Family History: Father- IBS, COPD, Melanoma, resting cancer, lung cancer Mother- HTN, DM, COPD Sister- Cancer of Labia Majora Social History Smoking Status: Never smoker Does patient use chewing tobac: No Second Hand Exposure: No Substance Use Type: does not use Alcohol Intake: none Current Occupational Status: employed Social History Comments PCP Anyi Johnson at [facility] Review of Systems Constitutional: REPORTS: chills, fatigue, fever ENMT Mouth/Throat: REPORTS: change in swallowing, change in voice, hoarsness, pain, painful swallowing, see HPI, sore throat GI Upper Abdomen: nausea All Other Systems All Other Systems: Reviewed (remainder of 10-point ROS Neg.) Physical Exam General General Nourishment: well nourished, well developed Vital Signs Vital Signs Date Time Temp Pulse Resp B/P Pulse Ox O2 Delivery O2 Flow Rate FiO2 12/09/16 12:50 101.4 89 20 135/69 93 Room Air Height (Feet): 5 Height (Inches): 3.00 ENMT Brief: FOUND: mucosa moist, normal dentition, pharnyx erythema Comments Trismus Respiratory Brief: FOUND: clear all wilkerson, equal bilaterally, NOT FOUND: wheezes Cardiovascular (brief) Cardiac Brief: FOUND: regular rate, regular rhythm, NOT FOUND: murmur, pedal edema Abdomen (brief) Abdominal Brief: FOUND: BS normo active x4, soft, NOT FOUND: distended, tender Integumentary (brief) Integumentary Brief: FOUND: dry, pink, warm Neurologic (brief) Neurological Brief: FOUND: cranial 2-12 intact Neurologic RN Documented GCS Eye Opening: Verbal: Motor: Total: Psychiatric (brief) FOUND: alert, attentive, normal affect, oriented Laboratory Laboratory Tests Test 12/09/16 10:57 12/09/16 11:35 White Blood Count 28.9T/MM3 Red Blood Count 4.81M/MM3 Hemoglobin 14.9GM/DL Hematocrit 45.0% Mean Corpuscular Volume 93.6UM3 Mean Corpuscular Hemoglobin 31.0UUG Mean Corpuscular Hemoglobin Concent 33.1GM/DL RDW Standard Deviation 48.8FL Platelet Count 421T/MM3 Mean Platelet Volume 10.7UM3 Immature Granulocyte % (Auto) % Neutrophils (%) (Auto) % Lymphocytes (%) (Auto) % Monocytes (%) (Auto) % Eosinophils (%) (Auto) % Basophils (%) (Auto) % Absolute Immature Granulocyte (auto T/MM3 Absolute Neutrophils (auto) T/MM3 Absolute Lymphocytes (auto) T/MM3 Absolute Monocytes (auto) T/MM3 Absolute Eosinophils (auto) T/MM3 Absolute Basophils (auto) T/MM3 Neutrophils % (Manual) 75.0% Band Neutrophils % 4.0% Lymphocytes % (Manual) 18.0% Monocytes % (Manual) 3.0% Absolute Neutrophils (Manual) 21.7T/MM3 Band Neutrophils # 1.2T/MM3 Lymphocytes # (Manual) 5.2T/MM3 Monocytes # (Manual) 0.9T/MM3 Red Cell Morphology Comment Normal Turbidity < 20 Sodium Level 141MEQ/L Potassium Level 4.5MEQ/L Chloride Level 102MEQ/L Carbon Dioxide Level 28MEQ/L Anion Gap 11MEQ/L Blood Urea Nitrogen 16.0MG/DL Creatinine 0.7MG/DL Glomerular Filtration Rate Calc 89 BUN/Creatinine Ratio 23RATIO Glucose Level 132MG/DL Calculated Osmolality 274MOSM/KG Calcium Level 9.3MG/DL Icterus Index < 2 Chemistry Specimen Hemolysis < 15 Influenza Type A Antigen Negative Influenza Type B Antigen Negative Group A Streptococcus Screen Positive Sepsis Diagnostic Criteria Sepsis Confirmed/Suspected Infection: Yes SIRS Criteria: Temp<=96.8 or >=100.4, WBC >=12,000 or <=4,000 Assessment & Plan Problems: (1) Sepsis Status: Acute Assessment & Plan: Manifestations of sepsis include the following 1. Acute infection, Streptococcal pharyngitis 2. Leukocytosis, white blood cell count of 20,000. 3. Fever (2) Pharyngitis Status: Acute Qualifiers: Pharyngitis/tonsillitis etiology: streptococcus Qualified Codes: J02.0 - Streptococcal pharyngitis (3) MVP (mitral valve prolapse) Status: Chronic (4) HTN (hypertension) Status: Chronic (5) GERD (gastroesophageal reflux disease) Status: Chronic (6) Arthritis Status: Chronic (7) Asthma Status: Chronic (8) Ventral hernia Status: Chronic (9) Morbid obesity with BMI of 50.0-59.9, adult Status: Chronic Plan/Intensity of Service Will admit as outpatient observation under the care of Dr Almaraz for strep pharyngitis with sepsis. Patient was started on clindamycin IV. Will continue 600 milligrams IV times a day for antimicrobial coverage. Obtain Blood cultures, Lactate and pro calcitonin as per sepsis protocol given increase in temperate at 1250pm she now meets criteria for Sepsis. Continue with Decadron for inflammatory treatment Toradol and Morphine IV for pain control Breathing treatments DubNeb and Pulmicort scheduled Will monitor continuous pulse oximetry Clear liquid diet as tolerated Will recheck CBC and BMP tomorrow to follow blood counts, renal function and electrolytes At time of discharge medical care will return to PCP Anyi Johnson. Code Status Full Code Hospital Course Summary Disclaimer The hospital course summary below is not to be considered part of the above Progress Note. Hospital Course Summary Will admit as outpatient observation under the care of Dr Almaraz for strep pharyngitis with sepsis. Patient was started on clindamycin IV. Will continue 600 milligrams IV times a day for antimicrobial coverage. Obtain Blood cultures, Lactate and pro calcitonin as per sepsis protocol given increase in temperate at 1250pm she now meets criteria for Sepsis. Continue with Decadron for inflammatory treatment Toradol and Morphine IV for pain control Breathing treatments DubNeb and Pulmicort scheduled Will monitor continuous pulse oximetry Clear liquid diet as tolerated Will recheck CBC and BMP tomorrow to follow blood counts, renal function and electrolytes At time of discharge medical care will return to PCP Anyi Johnson. SAMMY ALMARAZ MD 12/09/16 1510: Past Medical History Current Medications Home Meds Reported Medications Furosemide (Furosemide) 20 Mg Tablet, 10 MG PO DAILY 12/09/16 Tiotropium [place] (Spiriva) 1 Cap Inhaler, 1 CAP ORAL INH DAILY 12/09/16 Fluticasone/Salmeterol (Advair 250-50 Diskus) 1 Disk W/Dev Inhaler, 2 PUFF ORAL INH DAILY 10/21/15 Lisinopril (Lisinopril) 5 Mg Tablet, 5 MG PO HS, TAB 10/21/15 Ranitidine HCl (Ranitidine HCl) 150 Mg Capsule, 150 MG PO DAILY Y for PRN ORDERS 02/24/15 Fluoxetine HCl (Prozac) 20 Mg Capsule, 20 MG PO DAILY 02/24/15 Albuterol Sulfate (Ventolin Hfa) 18 Gm Hfa.aer.ad, 1 PUFF IH PRN 04/03/12 Allergies: Coded Allergies: loracarbef (Verified Allergy, Severe, AIRWAY SWELLING, 12/09/16) Penicillins (Verified Allergy, Unknown, HIVES, 12/09/16) lansoprazole (Verified Allergy, Unknown, ECTOPIC BEATS, 12/09/16) aspirin (Verified Adverse Reaction, Unknown, N/V, 12/09/16) Assessment & Plan Plan/Intensity of Service Have independently interviewed and examined pt. Chart reviewed. Case discussed with ED physician and my PACKAGING ASSOCIATE. Care plan developed with my supervision; agree with above. Woke this am with fullness and pain to throat and difficult breathing. Hard to get air in. Hurts to swallow. No f/c until left ED. Notes nasal congestion over past several days. Denies cough or congestion. No pain with breathing. Had nausea in ED. No urinary pain or burning. Lungs; decreased, no distress. No wheezes. CV: regular AB: soft obese nt/nd BS decreased EXT: trace edema MSE: awake alert appropriate Plan: Initially pt placed in OBS for treatment, but shortly after arrival to floor temp did elevate and CBC returned with elevated WBC (ordered to run on blood from initial ER blood draw). With pt meeting Sepsis criteria, lactate, procalcitonin, and BC ordered. IV antibiotics had been started in ED before pt met sepsis criteria. Will continue with Clindamycin 600mg IV q 8 hours for coverage - Penicillin allergy. Decadron 8mg IV q 8 to decrease inflammation. Will start routine Pepcid 20mg IV BID for histamine blockage and have IV Benadryl prn. Clear liquids due to pain with swallowing. Cepacol prn to provide topical pain relief. IVF of 1/2NS for hydration. Toradol and MS for pain control. SCD and Lovenox for DVT prevention. Hold pt antihypertensive due to sepsis. Monitor lab. DVT Prophylaxis: SCD'S, Lovenox GURPREET HICKMAN APRN Dec 09, 2016 13:43 SAMMY ALMARAZ MD Dec 09, 2016 15:10
[2016-12-09] MEDS ORDERED: MORPHINE SULFATE 2 MG SYRINGE IV PRN (14:15)
[2016-12-09] MEDS ORDERED: PRN ORDERS MC (14:15)
[2016-12-09] MEDS ORDERED: ACETAMINOPHEN 325 MG SUPPOSITORY RECTALLY PRN (14:15)
[2016-12-09] MEDS ORDERED: MAG-AL + SIM LIQUID 30 ML UDC PO PRN (14:15)
[2016-12-09] MEDS ORDERED: NITROGLYCERIN 0.4 MG SUBLINGUAL TABLET SL PRN (14:15)
[2016-12-09] MEDS ORDERED: KETOROLAC 30mg/ml INJECTION IV PRN (14:15)
[2016-12-09] MEDS ORDERED: ALBUTEROL/IPRATROPIUM INHAL. 2.5mg-0.5mg/3ml Neb. AEROSOL PRN (14:15)
[2016-12-09] MEDS ORDERED: ONDANSETRON 4mg/2ml INJECTION IV PRN (14:15)
[2016-12-09] MEDS ORDERED: BISACODYL 10 MG SUPPOSITORY RECTALLY PRN (14:15)
[2016-12-09] MEDS ORDERED: MILK OF MAGNESIA 30 ML SUSP PO PRN (14:15)
[2016-12-09] MEDS ORDERED: DiphenhydrAMINE 50 MG/ML INJECTION IV PRN (14:30)
[2016-12-09] MEDS ORDERED: BENZOCAINE/MENTHOL LOZENGE PO PRN (14:30)
[2016-12-09] MEDS ORDERED: NORMAL SALINE 500 ML IV PRN (15:15)
[2016-12-09] MEDS: FAMOTIDINE 20 MG in NORMAL SALINE 50 ML IV SCH ×2 (15:20→21:43)
[2016-12-09] MEDS: ENOXAPARIN 40 MG/0.4 ML INJECTION SQ SCH (15:21)
[2016-12-09] MEDS: ACETAMINOPHEN 325 MG TABLET PO PRN ×2 (15:21→22:56)
[2016-12-09] MEDS: ALBUTEROL/IPRATROPIUM INHAL. 2.5mg-0.5mg/3ml Neb. AEROSOL SCH ×2 (15:30→19:08)
[2016-12-09] MEDS ORDERED: PROMETHAZINE 25 MG INJECTION IV PRN (15:45)
[2016-12-09] MEDS: 1/2 NS 1,000 ML IV SCH (16:38)
[2016-12-09] MEDS: BUDESONIDE INH.SOLN. 0.5mg/2ml NEB AEROSOL SCH (19:08)
--- NOTE | 2016-12-09 19:48 | NUR ---
PROGRESS NOTE PT IS ALERT AND ORIENTED X3. VITAL SIGNS STABLE, PLACED ON 1L O2 PER NC DUE TO OXYGEN SATURATION LEVELS FROM 89-90%. PT HAS 0.45%NS RUNNING AT 100CC/HR THROUGH HER RIGHT FOREARM IV SITE. PT IS A SBA TO THE BATHROOM. HAS HAD ADEQUATE URINE OUTPUT THIS SHIFT, NO BOWEL MOVEMENT. PT WAS GIVEN ONE DOSE OF PRN TYLENOL AFTER ADMISSION TO FLOOR FOR SORE THROAT, HAS DENIED NEED FOR ANY ADDITIONAL MEDICATION. THE PT IS RESTING IN BED, CALL LIGHT WITHIN REACH, NO CONCERNS NOTED AT THIS TIME. Addendum: 12/09/16 at 2017 by ZACHARY MICHELLE RN ASSUMED PT CARE AT 1300.
[2016-12-09] MEDS: DEXAMETHASONE 4mg/ml - 1ml INJECTION IV SCH (20:24)
[2016-12-09] MEDS: CLINDAMYCIN 600mg IVPB 50 ML IV SCH (20:27)
[2016-12-10] MEDS: DEXAMETHASONE 4mg/ml - 1ml INJECTION IV SCH ×2 (03:55→21:14)
[2016-12-10] MEDS: 1/2 NS 1,000 ML IV SCH ×2 (03:55→22:28)
[2016-12-10] MEDS: CLINDAMYCIN 600mg IVPB 50 ML IV SCH ×3 (03:55→21:14)
[2016-12-10 04:14] VITALS: BP 112/67; PULSE 74; RESP 16; TEMP 97.2; O2SAT 92
--- NOTE | 2016-12-10 05:30 | NUR ---
Status Pt requested analgesic twice for headache. Gave acetaminophen and ketorolac as charted. Pt afebrile and VSS. Pt using hot pack to relieve arthritic back pain. States that it is very helpful. Pt denies that it is difficult or painful to swallow. Adequate UO. Family in room during evening hours. Pt up with stand by assist. Bed alarm on. Uses call light appropriately. Will continue to monitor.
[2016-12-10 05:37] LABS: HCT - HEMATOCRIT 42.7 % (36-46); HGB - HEMOGLOBIN 14.4 GM/DL (12-16); MEAN CORPUSCULAR HGB CONC(MCHC 33.7 GM/DL (31-37); MEAN CORPUSCULAR VOLUME 91.8 UM3 (80-100); MEAN PLATELET VOLUME 10.5 UM3 (9.4-12.4); RED BLOOD COUNT 4.65 M/MM3 (4.00-5.20)
[2016-12-10 05:42] LABS: WBC - WHITE BLOOD COUNT 31.9 T/MM3 (4.5-11.0)
[2016-12-10 05:45] LABS: ALBUMIN 3.9 G/DL (3.5-5.0); ALBUMIN/GLOBULIN RATIO 1.1 RATIO (1.1-2.2); ALKALINE PHOSPHATASE 85 U/L (38-126); ALT (SGPT) 21 U/L (9-52); ANION GAP 11 MEQ/L (5-15); AST (SGOT) 20 U/L (14-36); BUN/CREATININE RATIO 20 RATIO (6-26); CALCIUM 9.3 MG/DL (8.4-10.2); CHLORIDE 105 MEQ/L (98-107); CO2 - CARBON DIOXIDE 25 MEQ/L (22-30); CREATININE 0.6 MG/DL (0.7-1.2); GLOMERULAR FILTRATION RATE 106; GLUCOSE 169 MG/DL (65-110); POTASSIUM 3.7 MEQ/L (3.6-5); SODIUM 141 MEQ/L (134-144); TOTAL PROTEIN 7.6 G/DL (6.3-8.2)
[2016-12-10 06:12] LABS: BAND NEUTROPHILS # 5.1 T/MM3; LYMPHOCYTES # (MANUAL) 1.3 T/MM3 (1-4.8); NEUTROPHILS #(MANUAL)-ABSOLUTE 25.5 T/MM3 (1.8-7.7); TOTAL CELLS COUNTED 100 %
[2016-12-10 08:00] VITALS: BP 116/65; PULSE 88; RESP 18; TEMP 97.8; O2SAT 98
[2016-12-10] MEDS: BUDESONIDE INH.SOLN. 0.5mg/2ml NEB AEROSOL SCH ×2 (08:02→19:20)
[2016-12-10 08:03] VITALS: O2SAT 92
[2016-12-10] MEDS: ALBUTEROL/IPRATROPIUM INHAL. 2.5mg-0.5mg/3ml Neb. AEROSOL SCH ×4 (08:03→19:20)
--- NOTE | 2016-12-10 09:33 | PNPDOC ---
GURPREET HICKMAN V HARVEST SUPERVISOR 12/10/16 0926: Subjective Date DATE: 12/10/16 TIME: 09:18 Subjective Lori is seen this morning in follow up for streptococcal pharyngitis and sepsis. She continues on 1 liter of oxygen this morning. She feels that her throat swelling is slightly improved this morning and would like to try to advance diet. She denies feeling short of breath or having nausea. No other GI complaints. BP stable at 112/67. Objective Vital Signs Vital signs Vital Signs Date Time Temp Pulse Resp B/P Pulse Ox O2 Delivery O2 Flow Rate FiO2 12/10/16 08:03 82 12/10/16 08:03 Nasal Cannula 1.00 12/10/16 08:03 12 92 12/10/16 04:14 97.2 112/67 Height (Feet): 5 Height (Inches): 3.00 Weight (Kilograms): 132.500 General General Appearance: Alert, Orientated x 3, Cooperative, No Acute Distress Eyes (Brief) Eyes: FOUND: EOMI ENMT (Brief) ENMT: FOUND: mucosa moist, normal dentition, pharnyx erythema, NOT FOUND: normal tonsils Neck (Brief) Neck: FOUND: midline, NOT FOUND: adenopathy, carotid bruits, tracheal deviation Respiratory (Brief) Respiratory: FOUND: clear all wilkerson, equal bilaterally, NOT FOUND: wheezes Cardiovascular (Brief) Cardiac: FOUND: regular rate, regular rhythm, NOT FOUND: murmur, pedal edema Capillary Refill: <2 sec Abdomen (Brief) Abdominal: FOUND: BS normo active x4, soft, NOT FOUND: distended, tender Lymphatic (Brief) Lymphatic: NOT FOUND: adenopathy Musculoskeletal (Brief) Musculoskeletal: NOT FOUND: tenderness Integumentary (Brief) Integumentary: FOUND: dry, pink, warm Neurologic (Brief) Neurological: FOUND: cranial 2-12 intact Psychiatric (Brief) Psychiatric: FOUND: alert, attentive, normal affect, oriented Laboratory Laboratory Laboratory Tests 12/09/16 10:57 12/10/16 04:23 Laboratory Tests 12/09/16 10:57 12/10/16 04:23 Microbiology Microbiology Microbiology Date/Time Source Procedure Growth Status 12/09/16 14:32 Peripheral/Iv Start Blood Culture - Preliminary CULTURE INITIATED - RESULTS PENDING Resulted 12/09/16 14:32 Peripheral/Iv Start Blood Culture - Preliminary CULTURE INITIATED - RESULTS PENDING Resulted Sepsis Diagnostic Criteria Sepsis Confirmed/Suspected Infection: Yes SIRS Criteria: Temp<=96.8 or >=100.4, WBC >=12,000 or <=4,000 Assessment & Plan Problems: (1) Sepsis Status: Acute Assessment & Plan: Manifestations of sepsis include the following 1. Acute infection, Streptococcal pharyngitis 2. Leukocytosis, white blood cell count of 20,000. 3. Fever (2) Pharyngitis Status: Acute Qualifiers: Pharyngitis/tonsillitis etiology: streptococcus Qualified Codes: J02.0 - Streptococcal pharyngitis (3) MVP (mitral valve prolapse) Status: Chronic (4) HTN (hypertension) Status: Chronic (5) GERD (gastroesophageal reflux disease) Status: Chronic (6) Arthritis Status: Chronic (7) Asthma Status: Chronic (8) Ventral hernia Status: Chronic (9) Morbid obesity with BMI of 50.0-59.9, adult Status: Chronic Plan/Intensity of Service 12/10/16 WBC count continues to be significantly elevated at 31.9 which may be affected by IV Decadron Noted increase in bandemia to 16%. Continue with Clindamycin IV for antimicrobial coverage. Blood cultures pending. Will work on weaning oxygen as able. Continue with scheduled breathing nebs. Scheduled Decadron for pharyngeal inflammation She is tolerating clear liquids well. Will advance diet as tolerated Pepcid and Benadryl scheduled histamine blockers Lovenox SQ daily for DVT prophylaxis Recheck CBC and BMP tomorrow to follow Leukocytosis, blood counts and renal function Code Status Full Code Hospital Course Summary Disclaimer The hospital course summary below is not to be considered part of the above Progress Note. Hospital Course Summary Will admit as outpatient observation under the care of Dr Almaraz for strep pharyngitis with sepsis. Patient was started on clindamycin IV. Will continue 600 milligrams IV times a day for antimicrobial coverage. Obtain Blood cultures, Lactate and pro calcitonin as per sepsis protocol given increase in temperate at 1250pm she now meets criteria for Sepsis. Continue with Decadron for inflammatory treatment Toradol and Morphine IV for pain control Breathing treatments DubNeb and Pulmicort scheduled Will monitor continuous pulse oximetry Clear liquid diet as tolerated Will recheck CBC and BMP tomorrow to follow blood counts, renal function and electrolytes At time of discharge medical care will return to PCP Anyi Johnson. 12/10/16 WBC count continues to be significantly elevated at 31.9 which may be affected by IV Decadron Noted increase in bandemia to 16%. Continue with Clindamycin IV for antimicrobial coverage. Blood cultures pending. Will work on weaning oxygen as able. Continue with scheduled breathing nebs. Scheduled Decadron for pharyngeal inflammation She is tolerating clear liquids well. Will advance diet as tolerated Pepcid and Benadryl scheduled histamine blockers Lovenox SQ daily for DVT prophylaxis Recheck CBC and BMP tomorrow to follow Leukocytosis, blood counts and renal function SAMMY ALMARAZ MD 12/10/16 1109: Assessment & Plan Plan/Intensity of Service Have independently interviewed and examined pt. Chart reviewed. Case discussed with my HARVEST SUPERVISOR. Care plan developed with my supervision; agree with above. Doing much better today. Throat pain and discomfort significantly decreased. No pain with swallowing. No nausea. Feeling hungry. Diet advanced and pt tolerated food well. Passing flatus but no stool. Breathing well without SOA, cough or congestion. No chest pain. No f/c. Lungs: clear CV: regular AB: soft obese NT/ND +BS MSE; awake alert appropriate Plan: Continue with clindamycin for antimicrobial coverage. Decrease Decadron to 4mg IV BID. May stop IV Pepcid. Decrease IVF to 50cc/hr. Wean O2. Encourage ambulation. Will recheck CBC in am due to leukocytosis (likely steroid effect). GURPREET HICKMAN APRN Dec 10, 2016 09:26 SAMMY ALMARAZ MD Dec 10, 2016 11:09
[2016-12-10] MEDS: FAMOTIDINE 20 MG in NORMAL SALINE 50 ML IV SCH (09:40)
[2016-12-10] MEDS: FLUOXETINE 20 MG CAPSULE PO SCH (09:40)
[2016-12-10] MEDS: ENOXAPARIN 40 MG/0.4 ML INJECTION SQ SCH (09:41)
--- NOTE | 2016-12-10 12:23 | NUR ---
DANILO THIS SW MET WITH PT IN ROOM. PT WAS LAYING IN BED AT THIS TIME. NO OTHERS PRESENT. THIS WORKER INTRODUCED SELF AND ROLE OF CASE MANAGEMENT. PT REPORTED LIVING WITH HER DAUGHTER. THIS WORKER INQUIRED REGARDING POSSIBLE MEDICATIONS AT TIME OF DISMISSAL AND THE COST DUE TO PT NOT HAVING INSURANCE. PT REPORTED THAT SHE HAS THE MEDICATION ASSISTANCE PROGRAM THROUGH [facility] THAT HELP HER WITH MEDICATIONS. THIS WORKER INQUIRED REGARDING A DISMISSAL OVER THE WEEKEND AND [facility] BEING CLOSED. PT REPORTED THAT SHE GOT PAID TODAY SO WOULD BE ABLE TO AFFORD THE MEDICATIONS IF SHE WAS DISMISSED OVER THE WEEKEND. PT REPORTED THAT SHE HAS SUPPORT FROM HER DAUGHTER IF SHE NEEDS ANYTHING. PT EXPLAINED THAT SHE WAS EMPLOYED. FOLLOW UP APPOINTMENT OBTAINED THROUGH [facility] FOR NEXT TUESDAY AT 2:45PM. PT DENIED ANY NEEDS AT THIS TIME. THIS WORKER PROVIDED CONTACT INFORMATION FOR THIS WORKER AND ENCOURAGED TO CALL WITH ANY QUESTIONS OR NEEDS.
[2016-12-10] MEDS ORDERED: INFLUENZA VAC QIV 2016-17 (Fluarix*)(>=3yo) 0.5ml IM ONE (12:30)
[2016-12-10 15:03] VITALS: O2SAT 93
[2016-12-10 15:21] VITALS: BP 126/67; PULSE 105; RESP 18; TEMP 96.1; O2SAT 95
--- NOTE | 2016-12-10 18:47 | NUR ---
status Pt A/O x3, V/S stable on RA. Pt ambulating with standby assist, denies dizziness or SOA. Pt denies pain and no PRN meds given. IV site started to infiltrate, stopped and DC'd, new site started. Pt eating well, urine output good for shift. Pt up walking in room and stood to take shower.
[2016-12-10 19:20] VITALS: O2SAT 94
[2016-12-10] MEDS ORDERED: LISINOPRIL 5 MG TABLET PO SCH (22:00)
[2016-12-11 00:08] VITALS: BP 101/54; PULSE 90; RESP 18; TEMP 97.5; O2SAT 93
[2016-12-11] MEDS: CLINDAMYCIN 600mg IVPB 50 ML IV SCH ×2 (04:45→11:25)
[2016-12-11 05:10] LABS: HCT - HEMATOCRIT 40.1 % (36-46); HGB - HEMOGLOBIN 13.1 GM/DL (12-16); MEAN CORPUSCULAR HGB 30.4 UUG (26-34); MEAN CORPUSCULAR HGB CONC(MCHC 32.7 GM/DL (31-37); MEAN PLATELET VOLUME 10.3 UM3 (9.4-12.4); RED BLOOD COUNT 4.31 M/MM3 (4.00-5.20); WBC - WHITE BLOOD COUNT 35.2 T/MM3 (4.5-11.0)
--- NOTE | 2016-12-11 06:41 | NUR ---
SUMMARY. PT SLEPT WELL THIS SHIFT. A&O X3. ABLE TO VOICE NEEDS TO THE STAFFS. DENIED ANY PAIN. PT AMBULATING SELF TO THE BATHROOM. GAIT STEADY. EDUCATED LIQUOR MAKER LIGHT USE AND SAFETY. NO PRN THIS SHIFT. FAMILY HAS BEEN IN THE ROOM SEVERAL TIMES THIS SHIFT TO VISIT HER. CONTINUES ON IV FLUIDS THAT SHE TOLERATES WELL. NO CHANGES THIS SHIFT.
[2016-12-11 06:52] LABS: BAND NEUTROPHILS # 0.7 T/MM3; LYMPHOCYTES # (MANUAL) 3.5 T/MM3 (1-4.8); MONOCYTES # (MANUAL) 1.4 T/MM3 (0-0.8); NEUTROPHILS #(MANUAL)-ABSOLUTE 29.6 T/MM3 (1.8-7.7); TOTAL CELLS COUNTED 100 %
[2016-12-11] MEDS: 1/2 NS 1,000 ML IV SCH (07:00)
[2016-12-11] MEDS: BUDESONIDE INH.SOLN. 0.5mg/2ml NEB AEROSOL SCH (07:23)
[2016-12-11] MEDS: ALBUTEROL/IPRATROPIUM INHAL. 2.5mg-0.5mg/3ml Neb. AEROSOL SCH ×2 (07:23→11:50)
[2016-12-11 07:25] VITALS: O2SAT 93
[2016-12-11 08:00] VITALS: BP 103/57; PULSE 89; RESP 18; TEMP 97.2; O2SAT 95
[2016-12-11] MEDS ORDERED: FUROSEMIDE 20 MG TABLET PO SCH (09:00)
[2016-12-11] MEDS: DEXAMETHASONE 4mg/ml - 1ml INJECTION IV SCH (09:25)
[2016-12-11] MEDS: FLUOXETINE 20 MG CAPSULE PO SCH (09:25)
[2016-12-11] MEDS: ENOXAPARIN 40 MG/0.4 ML INJECTION SQ SCH (09:26)
--- NOTE | 2016-12-11 10:51 | PNPDOC ---
Subjective Date DATE: 12/11/16 TIME: 10:41 Subjective F/U: Sepsis, Pharyngitis Doing well this morning. No pain to throat or neck. Able to eat and drink well without pain or nausea. Breathing well without SOA or congestion. No ab pain. Bowel stable. Urinating well. Stable when up and ambulatory-not dizzy or unsteady. No f/c. Objective Vital Signs Vital signs Vital Signs Date Time Temp Pulse Resp B/P Pulse Ox O2 Delivery O2 Flow Rate FiO2 12/11/16 08:00 97.2 89 18 103/57 95 Room Air 12/10/16 08:03 1.00 Height (Feet): 5 Height (Inches): 3.00 Weight (Kilograms): 134.100 General General Appearance: Alert, Obese, Orientated x 3, Well Nourished, Well Developed, Cooperative, No Acute Distress, Looks Stated Age Eyes (Brief) Eyes: FOUND: EOMI, PERRL, NOT FOUND: scleral icterus ENMT (Brief) ENMT: FOUND: hearing intact, mucosa moist Neck (Brief) Neck: FOUND: midline, NOT FOUND: nuchal rigidity, spasm Respiratory (Brief) Respiratory: FOUND: clear all wilkerson, equal bilaterally, NOT FOUND: rales, wheezes Cardiovascular (Brief) Cardiac: FOUND: regular rate, regular rhythm, NOT FOUND: pedal edema Abdomen (Brief) Abdominal: FOUND: BS normo active x4, soft, NOT FOUND: distended, tender Extremities (Brief) Extremity : Side: Bilateral Extremity: leg Extremity Finding: NOT FOUND: edema Musculoskeletal (Brief) Musculoskeletal: FOUND: extremities move equally, NOT FOUND: deformity, loss of motion, spasm, tenderness Integumentary (Brief) Integumentary: FOUND: dry, warm Neurologic (Brief) Neurological: FOUND: cranial 2-12 intact, motor (Intact ) Psychiatric (Brief) Psychiatric: FOUND: alert, attentive, normal affect, oriented Laboratory Laboratory Laboratory Tests 12/09/16 10:57 12/10/16 04:23 Laboratory Tests 12/09/16 10:57 12/10/16 04:23 12/11/16 04:38 Microbiology Microbiology Microbiology Date/Time Source Procedure Growth Status 12/09/16 14:32 Peripheral/Iv Start Blood Culture - Preliminary NO GROWTH AFTER 24 HOURS Resulted 12/09/16 14:32 Peripheral/Iv Start Blood Culture - Preliminary NO GROWTH AFTER 24 HOURS Resulted Sepsis Diagnostic Criteria Sepsis Confirmed/Suspected Infection: Yes SIRS Criteria: Temp<=96.8 or >=100.4, WBC >=12,000 or <=4,000 Assessment & Plan Problems: (1) Sepsis Status: Resolved Assessment & Plan: Manifestations of sepsis include the following 1. Acute infection, Streptococcal pharyngitis 2. Leukocytosis, white blood cell count of 20,000. 3. Fever (2) Pharyngitis Status: Acute Qualifiers: Pharyngitis/tonsillitis etiology: streptococcus Qualified Codes: J02.0 - Streptococcal pharyngitis (3) Leukocytosis Status: Acute Qualifiers: Leukocytosis type: bandemia Qualified Codes: D72.825 - Bandemia (4) MVP (mitral valve prolapse) Status: Chronic (5) HTN (hypertension) Status: Chronic (6) GERD (gastroesophageal reflux disease) Status: Chronic (7) Arthritis Status: Chronic (8) Asthma Status: Chronic (9) Ventral hernia Status: Chronic (10) Morbid obesity with BMI of 50.0-59.9, adult Status: Chronic Plan/Intensity of Service Will d/c to home. Continue Clindamycin 300mg po TID for 10 days Decadron 2mg po BID for 3 days Yogurt to help bowel regularity - advices signs/symptoms of C diff to watch for. Tylenol as needed for pain. Warm salt water gargle for throat comfort. F/U with Dr Staples on 12/13 and YANCY on 12/14. May return to work on 12/15 - no restrictions. See orders for details. DVT Prophylaxis: SCD'S, Lovenox Code Status Full Code Hospital Course Summary Disclaimer The hospital course summary below is not to be considered part of the above Progress Note. Hospital Course Summary 12/09/16 Will admit as outpatient observation under the care of Dr Almaraz for strep pharyngitis with sepsis. Patient was started on clindamycin IV. Will continue 600 milligrams IV times a day for antimicrobial coverage. Obtain Blood cultures, Lactate and pro calcitonin as per sepsis protocol given increase in temperate at 1250pm she now meets criteria for Sepsis. Continue with Decadron for inflammatory treatment Toradol and Morphine IV for pain control Breathing treatments DubNeb and Pulmicort scheduled Will monitor continuous pulse oximetry Clear liquid diet as tolerated Will recheck CBC and BMP tomorrow to follow blood counts, renal function and electrolytes At time of discharge medical care will return to PCP Anyi Johnson. 12/10/16 WBC count continues to be significantly elevated at 31.9 which may be affected by IV Decadron Noted increase in bandemia to 16%. Continue with Clindamycin IV for antimicrobial coverage. Blood cultures pending. Will work on weaning oxygen as able. Continue with scheduled breathing nebs. Scheduled Decadron for pharyngeal inflammation - Decreased to 4mg IV BID She is tolerating clear liquids well. Will advance diet as tolerated D/C Pepcid - Benadryl prn. Lovenox SQ daily for DVT prophylaxis Recheck CBC and BMP tomorrow to follow Leukocytosis, blood counts and renal function 12/11 Doing well this morning. No pain to throat or neck. Able to eat and drink well without pain or nausea. Breathing well without SOA or congestion. No ab pain. Bowel stable. Urinating well. Stable when up and ambulatory-not dizzy or unsteady. No f/c. Will d/c to home. Continue Clindamycin 300mg po TID for 10 days Decadron 2mg po BID for 3 days Yogurt to help bowel regularity - advices signs/symptoms of C diff to watch for. Tylenol as needed for pain. Warm salt water gargle for throat comfort. F/U with Dr Staples on 12/13 and on 12/14. May return to work on 12/15 - no restrictions. See orders for details. SAMMY ALMARAZ MD Dec 11, 2016 10:46
[2016-12-11] MEDS ORDERED: CLIN300C86 PO (10:53)
[2016-12-11] MEDS ORDERED: DEXA2TAB PO (10:53)
--- NOTE | 2016-12-11 10:56 | PD.WORK ---
Work Release DATE: 12/11/16 TIME: 10:54 Work Release Excused for: Rj Brand was hospitalized at [facility] from 12/09/16 until . She may return to work on 12/15/16. She has no work restrictions. SAMMY GIBBS MD Dec 11, 2016 10:56
--- NOTE | 2016-12-11 14:00 | NUR ---
status/ DC Pt A/O x3, V/S stable on RA. Pt ambulating well up at vu in room, denies SOA or dizziness. Pt denies pain and no PRN meds given. Pt DC to home, instructions given, no questions at this time. IV site taken out, cath tip intact. Pt dressed and all belongings taken. 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
--- NOTE | 2016-12-12 11:45 | DSF ---
ADMITTING DIAGNOSIS Sepsis. DISCHARGE DIAGNOSIS Sepsis, resolved. ASSOCIATED CONDITIONS/COMPLICATIONS 1. Streptococcal pharyngitis. 2. Hypertension. 3. Mitral valve prolapse. 4. GERD. 5. Asthma. 6. Osteoarthritis. 7. Ventral hernia. 8. Morbid obesity with BMI 52.4. PROCEDURES None CONSULTS None. CLINICAL RESUMGuillermo Brand is of 51-year-old female who presents to [facility] emergency room for evaluation of throat pain and swelling. The patient reports symptoms onset suddenly this morning at approximately 5 o'clock a.m. She felt like she was congested and could not breathe. She had some mild loose stools intermittently for the past week but otherwise has been her typical state of health. With her symptoms she found it very hard to get the air and hard to swallow. She does note some nasal congestion over the past several days. She is not noticing pulmonary congestion, cough or sputum. While in emergency room she did have some nausea. In the emergency room she was evaluated. White count is elevated 28.9 with 75% neutrophils and 4% bands. Plasma lactate is 1.0. She did undergo CT soft tissue neck which showed inflammation enhancing tissue in the area the right palatine tonsil with bilateral lymphadenopathy. No evidence of abscess was noted. In the emergency room Dr. Lund did discuss case with Dr. Staples. Discussion about initiating antimicrobial therapy and Decadron was given. Hospitalist Service was subsequently contacted and the patient was placed in inpatient admission for further evaluation and treatment. For complete details of the H&P refer to that document. LABORATORY White blood count is 28.9 with 75% neutrophils and 4% bands. Hemoglobin is 14.9 with hematocrit 45.0, MCV 96.3 and platelets 421,000. Serum sodium is 141, potassium 4.5, chloride 102, CO2 28, BUN 16 with creatinine 0.7, GFR 89 and blood glucose 139. Group A strep screen is positive. Influenza type A and B screen is negative. Lactate was 1.0 with procalcitonin less than 0.05. HOSPITAL COURSE The patient was placed in inpatient admission status at [facility] under the care of Dr. Almaraz. She was started on clindamycin 600 mg IV q.8h. for empiric antimicrobial coverage of strep pharyngitis. She does have allergy to cephalexin and penicillin and therefore clindamycin was thought to be the most reasonable choice. She was given 900 mg IV clindamycin in the emergency room and also 10 mg of IV Decadron. We did initiate Decadron 8 mg IV q.8h. Toradol and morphine were made available as needed for pain control. As she has underlying asthma we initiated nebulized treatments of DuoNeb routinely and Pulmicort b.i.d. Zofran was made available as needed for nausea. Clear liquid diet was initiated. She was started on SCDs and Lovenox for DVT prevention. Overall her hospital course was one of good improvement. By hospital day #1 she was feeling much, much better. Throat was much less painful and tender. She was able to breathe much easier. Diet was able to be advanced to regular and well tolerated. White count did increase during the hospitalization and the clinical significance of uncertain. Most likely it is secondary to Decadron use. Further monitoring of white count in outpatient setting is advisable. As the patient's symptoms were improving we did decrease Decadron to 4 mg IV b.i.d. and also decreased IV fluids. She was expressing some desire for discharge to home on the hospital day #1 but we felt light of her significant symptoms at presentation it be more prudent to wait another day. The next day met with continued success. Clinically the patient was feeling quite well. She was keeping foods and liquids down without difficulty. She was maintaining saturations well on room air. She was afebrile and her vitals were stable. She was ambulating without difficulty. White count had increased to 35.2 but her platelets had normalized at 388. In light of her significant improvement she was able to be discharged to home. Narrative disclaimer: Above narrative is a brief summary of patient's hospitalization; for complete details of the hospital course please refer to the medical record. DISCHARGE CONDITION Stable/good. DIET Regular. ACTIVITIES As tolerated; may return to work on 12/15/16. MEDICATIONS 1. Clindamycin 300 mg p.o. t.i.d. x ten days. 2. Decadron 2 mg p.o. b.i.d. x three days. 3. ProAir HFA one puff p.r.n. 4. Prozac 20 mg daily 5. Advair 250/50 two puffs daily 6. Furosemide 10 mg daily. 7. Lisinopril 5 mg q.h.s. 8, Ranitidine 150 mg daily p.r.n. 9. Abreva one capsule inhaled daily. FOLLOWUP 1. The patient will follow up with Dr. Mcgarry on Wednesday 12/13. 2, The patient will follow with [facility] on Thursday 12/14. INSTRUCTION TO PATIENT Patient was instructed on her diagnosis and treatments provided. We encouraged her be adherent with antibiotic therapy and complete course. Advised the patient to watch for any increased loose stools. Advised use of yogurt which may be beneficial to help promote bowel regularity. If she develops significantly loose and intractable diarrhea, she should be in contact with her primary provider promptly. We encouraged her on warn small water gargle to help decrease throat discomfort. She may use Tylenol for pain. Should problems or need occur, she will be in contact with [facility]. If symptoms come quite dire she can present to emergency room for acute evaluation. She voiced understanding of the above, Time spent with discharge greater than 35 minutes. JOSE
== END 2016-12-11 13:35 | disposition home or self-care (01) | DRG 872 ==
LOC: ED 10:01 → EDHOLD 12:28 → MED 13:00 → OBSVTOIN 16:52
PROVIDERS: ADMIT Hospitalist; ATTEND Hospitalist
DX: A41.9 Sepsis, unspecified organism (principal); Z68.43 Body mass index [BMI] 50.0-59.9, adult; J02.0 Streptococcal pharyngitis; I10 Essential (primary) hypertension; K58.9 Irritable bowel syndrome, unspecified; E66.01 Morbid (severe) obesity due to excess calories; I34.1 Nonrheumatic mitral (valve) prolapse; K43.9 Ventral hernia without obstruction or gangrene; K21.9 Gastro-esophageal reflux disease without esophagitis; M19.91 Primary osteoarthritis, unspecified site
CPT/HCPCS: 36415; 80048; 80053; 83605; 84145; 85025; 87040; 87400; 87430; 94640; 96361; 96374

== ENCOUNTER 2016-12-16 17:05 | Emergency (ER) | payer SELFPAY ==
[~2016-12-16] VITALS: Ht 160 cm; Wt 135.1 kg
[~2016-12-16 17:05] MED LIST changes: +CLIN300C86 PO; +DEXA2TAB PO; +FURO20TA4 PO; +TIOT18CA3 ORAL INH
[2016-12-16 17:08] VITALS: Ht 160 cm; Wt 135.1 kg
--- OUTSIDE RECORDS SUMMARY | 2016-12-16 17:09 | XMS REPORT | Continuity of Care Document ---
Author Author [facility] Organization [facility] Address Unknown Phone Unavailable Support Name Relationship Address Phone SAMMY GIBBS MD Caregiver [address] [place] [address] [place] [address] Unavailable SAMMY GIBBS MD Caregiver [address] [place] [address] [place] [address] Unavailable KATELIN GOODMAN APRN Caregiver [address] [place] [address] Unavailable WENDY BROOKS DO Caregiver [address] [place] [address] [place] [address] Unavailable SHA COSTELLO Next Of Kin [address] [place] [address] Insurance Providers Guarantor Lori James Address [address] [address] Email [email or web address] Payer Self Pay Subscriber's Name Lori James Relationship 18 Self Advance Directives Directive Response Recorded Date/Time Ordered Resuscitation Status Full Code 12/09/16 12:28pm Resuscitation Documents on File No 12/09/16 1:12pm DPOA for Healthcare Only No 12/09/16 1:12pm Living Will No 12/09/16 1:12pm Problems Active Problems Medical Problem Onset Date Status Abrasion Unknown Acute Abrasion Unknown Acute Arthritis Unknown Chronic Asthma Unknown Chronic Asthma exacerbation Unknown Acute Cough Unknown Acute GERD (gastroesophageal reflux disease) Unknown Chronic HTN (hypertension) Unknown Chronic Hx of first degree atrioventricular block Unknown Inflammatory bowel disease Unknown Knee contusion Unknown Acute Left flank pain Unknown Acute Left flank pain Unknown Acute Leukocytosis Unknown Acute Low back pain Unknown Acute MVP (mitral valve prolapse) Unknown Chronic Morbid obesity with BMI of 50.0-59.9, adult Unknown Chronic Pharyngitis Unknown Acute Sepsis Unknown Resolved Ventral hernia Unknown Chronic Past Problems Medical Problem Onset Date Bilateral upper abdominal pain Unknown Tonsillitis Unknown Umbilical hernia without obstruction or gangrene Unknown Ventral hernia without obstruction or gangrene Unknown Medications Current Home Medications Medication Dose Units Route Directions Days Qty Instructions Start Date Albuterol Sulfate (Ventolin Hfa) 18 Gm Hfa.aer.ad 1 Puff Inhalation As Needed 04/03/12 Clindamycin Hcl 300 Mg Capsule 1 Cap Oral Three Times A Day 30 Capsule TAKE WITH A FULL GLASS OF WATER TO AVOID ESOPHAGEAL IRRITATION. 12/11/16 Dexamethasone 2 Mg Tablet 2 Mg Oral Twice A Day 6 Tablet 12/11/16 Fluoxetine Hcl (Prozac) 20 Mg Capsule 20 Mg Oral Daily 02/24/15 Fluticasone/Salmeterol (Advair 250-50 Diskus) 1 Disk W/Dev Inhaler 2 Puff Oral Inhalation Daily 10/21/15 Furosemide 20 Mg Tablet 10 Mg Oral Daily 12/09/16 Lisinopril 5 Mg Tablet 5 Mg Oral Bedtime 10/21/15 Ranitidine Hcl 150 Mg Capsule 150 Mg Oral Daily as needed for Prn Orders 02/24/15 Tiotropium [place] (Spiriva) 1 Cap Inhaler 1 Cap Oral Inhalation Daily 12/09/16 Past Home Medications Medication Directions Ordered Status [...] Problem Response Recorded Date/Time Onset Date Status Reason for Hospitalization Sepsis 12/11/2016 1:13pm Not Applicable Not Applicable Hx Substance Use No 12/09/2016 10:23am Not Applicable Not Applicable Hx Alcohol Use No 12/09/2016 10:23am Not Applicable Not Applicable Has the pt used tobacco in the last 12 months No 12/09/2016 1:10pm Not Applicable Not Applicable Tobacco Usage none 12/02/2014 7:53am Not Applicable Not Applicable Query Response Start Date Stop Date Smoking Status Never smoker Hospital Discharge Instructions Instructions: Care Instructions: Reason for Hospitalization: Sepsis I was in the hospital because (patient own words): strep throat and my throat is swelled Discharge Diet: Regular Discharge Activity: As tolerated; may return to work on 12/15 Follow Up Appointments: Dr Staples (ENT) on Wednesday 12/13 - call office in am for [facility] on 12/14 at 2:45pm Pending Lab / Results: No Pending Lab Patient Instructions: Warm salt water gargle 4 times a day. Wound/Incision Care: n/a Pain Management/Treatment: Tylenol as needed. Expected Signs/Symptoms: Improvemnet of breathing and resolution of throat pain Notify Physician If: Temp >100.4. Intractable diarrhea. During Business Hours:: Please call the physician's office at After Business Hours:: Please call [phone] and have the cantilever crane operator page the physician. Condition at time of discharge: Good Plan of Care Discharge Date 12/11/16 1:35pm Disposition 01 DISCHARGED HOME, SELF-CARE Instructions/Education Provided Pharyngitis (ED) Prescriptions See Medication Section Additional Instructions/Education FOLLOW UP APPOINTMENT WITH [facility] (KATELIN GOODMAN) 12/14/16 AT 2:45PM. Care Plan and Goals See Discharge Instructions Section Functional Status Query Response Date Recorded Mobility Status Ambulatory December 11, 2016 1:13pm Assistive Devices None December 11, 2016 1:13pm Activity Limitations None December 11, 2016 1:13pm Feeding Ability Independent December 11, 2016 1:13pm Toileting Ability Independent December 11, 2016 1:13pm Grooming Ability Independent December 11, 2016 1:13pm Dressing Ability Independent December 11, 2016 1:13pm Driving Ability Independent December 11, 2016 1:13pm Housework Ability Independent December 11, 2016 1:13pm Meal Preparation Ability Independent December 11, 2016 1:13pm Stair Climbing Ability Independent December 11, 2016 1:13pm Ability to complete ADL's impeded by No change December 11, 2016 1:13pm Cognitive/Perceptual Impairments Impaired vision December 11, 2016 1:13pm Visual Assistive Devices Glasses With patient December 09, 2016 1:17pm Preferred Method of Learning Reading December 09, 2016 1:17pm Allergies, Adverse Reactions, Alerts Allergen Type Severity Reaction Status Last Updated Penicillin Allergy Unknown HIVES Active 12/09/16 Aspirin Adverse Reaction Unknown N/V Active 12/09/16 Loracarbef Allergy Severe AIRWAY SWELLING Active 12/09/16 Lansoprazole Allergy Unknown ECTOPIC BEATS Active 12/09/16 Immunizations Immunization Event Date Type Not Given Reason Dose Number Lot Number [employer] VIS Given Influenza, seasonal, injectable 12/10/16 Not Given Patient Refused Med Query Response on File Recorded Date/Time Hx Influenza Vaccination Y fall 201312/09/16 1:10pm Hx Pneumococcal Vaccination Y longer than 5 years ago 12/09/16 1:10pm Hx Tetanus, Diptheria, Pertussis N UNKNOWN 12/06/14 12:24pm Hx Influenza Vaccination Y fall 201312/09/16 1:10pm Hx Tetanus, Diptheria, Pertussis N UNKNOWN 12/06/14 12:24pm Influenza Vaccine Hx 201312/10/16 12:56pm Vital Signs Acute Vital Signs Vital Response Date/Time Temperature (Fahrenheit) 97.2 deg F (96.8 - 99.1) 12/11/2016 8:00am Temperature (Calculated Celsius) 36.19336 degrees C (36.0 - 37.3) 12/11/2016 8:00am Pulse Rate (adult) 89 bpm (60 - 100) 12/11/2016 8:00am Respiratory Rate 18 breaths/min (10 - 20) 12/11/2016 8:00am O2 Sat by Pulse Oximetry 95 % (90 - 100) 12/11/2016 8:00am Oxygen Delivery Method Nasal Cannula 12/10/2016 8:03am Oxygen Delivery Method Room Air 12/11/2016 8:00am Oxygen Flow Rate 1.00 L/min 12/10/2016 8:03am Blood Pressure 103/57 mm Hg 12/11/2016 8:00am Blood Pressure Source Automatic Cuff 12/11/2016 8:00am Height (Feet) 5 feet 12/11/2016 10:51am Height (Inches) 3.00 inches 12/11/2016 10:51am Weight (Kilograms) 134.100 kg 12/11/2016 8:00am Body Mass Index (BMI) 51.7 12/09/2016 1:13pm Results Laboratory Results Test Name Result Units Flags Reference Collection Date/Time Result Date/ Time Comments White Blood Count 35.2 T/MM3 *H 4.5-11.0 12/11/2016 4:38am 12/11/2016 5: 10am Red Blood Count 4.31 M/MM3 4.00-5.20 12/11/2016 4:38am 12/11/2016 5: 10am Hemoglobin 13.1 GM/DL 12-16 12/11/2016 4:38am 12/11/2016 5:10am Hematocrit 40.1 % 36-46 12/11/2016 4:38am 12/11/2016 5:10am Mean Corpuscular Volume 93.0 UM3 80-100 12/11/2016 4:38am 12/11/2016 5: 10am Mean Corpuscular Hemoglobin 30.4 UUG 26-34 12/11/2016 4:38am 2016 5:10am Mean Corpuscular Hemoglobin Concent 32.7 GM/DL 31-37 12/11/2016 4:38am 12/11/2016 5:10am RDW Standard Deviation 50.3 FL H 36.9-50.2 12/11/2016 4:38am 12/11/2016 5:10am Platelet Count 388 T/MM3 130-400 12/11/2016 4:38am 12/11/2016 5:10am Mean Platelet Volume 10.3 UM3 9.4-12.4 12/11/2016 4:38am 12/11/2016 5: 10am Neutrophils % (Manual) 84.0 % H 33-66 12/11/2016 4:38am 12/11/2016 6: 52am Band Neutrophils % 2.0 % D 0-6 12/11/2016 4:38am 12/11/2016 6:52am Lymphocytes % (Manual) 10.0 % L 23-45 12/11/2016 4:38am 12/11/2016 6: 52am Monocytes % (Manual) 4.0 % 0-9.0 12/11/2016 4:38am 12/11/2016 6:52am Band Neutrophils # 0.7 T/MM3 12/11/2016 4:38am 12/11/2016 6:52am Absolute Neutrophils (Manual) 29.6 T/MM3 H 1.8-7.7 12/11/2016 4:38am 6:52am Lymphocytes # (Manual) 3.5 T/MM3 1-4.8 12/11/2016 4:38am 12/11/2016 6: 52am Monocytes # (Manual) 1.4 T/MM3 H 0-0.8 12/11/2016 4:38am 12/11/2016 6: 52am Red Cell Morphology Comment NORMAL 12/11/2016 4:38am 12/11/2016 6: 52am Icterus Index < 2 0-7 12/10/2016 4:12/10/2016 5:45am Chemistry Specimen Hemolysis < 15 0-25 12/10/2016 4:12/10/2016 5 :45am 0-25: Specimen Exhibited No Hemolysis. Turbidity < 20 0-20 12/10/2016 4:12/10/2016 5:45am Sodium Level 141 MEQ/L 134-144 12/10/2016 4:12/10/2016 5:45am Potassium Level 3.7 MEQ/L 3.6-5 12/10/2016 4:12/10/2016 5:45am Chloride Level 105 MEQ/L 98-107 12/10/2016 4:12/10/2016 5:45am Carbon Dioxide Level 25 MEQ/L 22-30 12/10/2016 4:12/10/2016 5: 45am Anion Gap 11 MEQ/L 5-15 12/10/2016 4:12/10/2016 5:45am Blood Urea Nitrogen 12.0 MG/DL 7-17 12/10/2016 4:12/10/2016 5: 45am Creatinine 0.6 MG/DL L 0.7-1.2 12/10/2016 4:12/10/2016 5:45am BUN/Creatinine Ratio 20 RATIO 6-26 12/10/2016 4:12/10/2016 5:45am Glomerular Filtration Rate Calc 106 12/10/2016 4:12/10/2016 5: 45am Glucose Level 169 MG/DL H 65-110 12/10/2016 4:12/10/2016 5:45am Calculated Osmolality 275 MOSM/KG 261-280 12/10/2016 4:12/10/2016 5:45am Calcium Level 9.3 MG/DL 8.4-10.2 12/10/2016 4:12/10/2016 5:45am Total Bilirubin 0.80 MG/DL 0.20-1.30 12/10/2016 4:12/10/2016 5: 45am Alkaline Phosphatase 85 U/L 38-126 12/10/2016 4:12/10/2016 5:45am Total Protein 7.6 G/DL 6.3-8.2 12/10/2016 4:12/10/2016 5:45am Albumin 3.9 G/DL 3.5-5.0 12/10/2016 4:12/10/2016 5:45am Globulin 3.7 G/DL H 2.4-3.6 12/10/2016 4:12/10/2016 5:45am Albumin/Globulin Ratio 1.1 RATIO 1.1-2.2 12/10/2016 4:12/10/2016 5 :45am Aspartate Amino Transf (AST/SGOT) 20 U/L 14-36 12/10/2016 4:2016 5:45am Alanine Aminotransferase (ALT/SGPT) 21 U/L 9-52 12/10/2016 4:12/10 5:45am Plasma Lactate 1.3 MMOL/L 0.6-2.2 12/09/2016 6:31pm 12/09/2016 6:47pm Procalcitonin < 0.05 NG/ML 12/09/2016 2:33pm 12/09/2016 3:09pm PCT < /=0.5 ng/mL - sepsis not likely; PCT >0.5 and </=2 ng/mL - sepsis possible; PCT >2 ng/mL - sepsis likely; PCT >/=10 ng/mL - systemic inflammatory response - sepsis or septic shock highly indicated. Group A Streptococcus Screen POSITIVE A NEGATIVE 12/09/2016 11:35am 12:02pm Influenza Type A Antigen NEGATIVE NEGATIVE 12/09/2016 11:35am 2016 12:02pm Negative for Flu A protein antigen. Assay sensitivity is 90%. Influenza Type B Antigen NEGATIVE NEGATIVE 12/09/2016 11:35am 2016 12:02pm Negative for Flu B protein antigen. Assay sensitivity is 90%. Microbiology Results Procedure Source Organism/Result Collection Date/Time Result Date/Time Result Status Blood Culture Peripheral/Iv Start NO GROWTH AFTER 24 HOURS 12/09/2016 2: 32pm 12/10/2016 2:38pm Preliminary Name: LORI JAMES Unit #: [id number] : [id number] Sex: F Admit Date: Loc / Svc: ED Discharge Date: DIAGNOSTIC IMAGING REPORT Report #: [id number] [facility] JOSEFINA Mendez Indication: ITS.REASON: throat pain PROCEDURE: CT NECK W/CONTRAST: Encounter: Initial Comparison: None Technique: Axial CT images were performed through the neck with intravenous contrast. Coronal and sagittal two-dimensional reformats Automated Exposure Control and Iterative Reconstruction dose reducing techniques were utilized. Contrast: Omnipaque 300 74 mL Findings: The lung apices are grossly clear. Attenuation artifact due to patient body habitus. Thyroid gland is grossly normal. Submandibular glands are normal and symmetric as are the parotid glands. There are enlarged lymph nodes in the submandibular chains bilaterally. This measures up to 1.5 cm in short axis on the right on image #38 and 1.6 cm on the left at this same level. There is abnormal soft tissue thickening in the right tongue base and tonsillar area. This causes mild narrowing of the traversing airway. The abnormal tissue is somewhat ill-defined but measures approximately 3.7 cm in craniocaudal dimension and up to 5.6 cm transversely on coronal image #27. There is no discrete fluid collection or abscess identified. Bone windows show degenerative changes in the spine. Impression: Inflammation and enhancing tissue in the area of the right palatine tonsil with bilateral lymphadenopathy. Findings are probably due to acute tonsillitis without abscess with reactive lymphadenopathy. ENT consultation is recommended for direct visualization to exclude any possible neoplastic process. . Procedures No known history of procedures. Encounters Encounter Location Arrival/Admit Date Discharge/Depart Date Attending Provider Discharged Inpatient [facility] 12/09/16 4:52pm 12/11/16 1:35pm SAMMY GIBBS MD
--- OUTSIDE RECORDS SUMMARY | 2016-12-16 17:09 | XMS REPORT | Continuity of Care Document ---
Author Author [facility] Organization [facility] Address Unknown Phone Unavailable Support Name Relationship Address Phone GUEROVILMA ESCOBEDO DO Caregiver [facility] [address] [place] [address] AGNIESZKA LINDSAY MD Caregiver [address] [place] [address] [phone] KATELIN GOODMAN APRN Caregiver [address] [place] [address] [phone] SHILOH [place] Next Of Kin [address] [place] [id number] Insurance Providers Payer Name Policy Number Subscriber [...] F (96.8 - 99.1) Temperature (Calculated Celsius) 36.07895 degrees C (36.0 - 37.3) Pulse Rate [...] 15, 2012 1:48pm LAB TEST FORM REQUEST [id number] - Lipase December 02, 2014 7:55am 162 [...] Monoscreen April 30, 2010 3:41am Negative - XV-Pin-E-Type Natriuretic Peptide June 14, 2012 3:26pm 38 [...] 2008 10:48pm Not Performed - Urine Specific [place] December 02, 2014 8:50am >=1.030 H - [...] Positive Organisms Name: LORI JAMES Unit #: [id number] : [id number] Sex: F Loc / Svc: ED DOS: 12/06/14 Signed Report #: [id number] DIAGNOSTIC IMAGING REPORT TYPE OF EXAM: KNEE [...] Encounters Encounter Location Date/Time Departed Emergency Room [facility] 12/06/14 12:11pm Departed Emergency Room [facility] 12/02/14 7:31am Recent Diagnosis
--- OUTSIDE RECORDS SUMMARY | 2016-12-16 17:10 | XMS REPORT | Continuity of Care Document ---
Author Author [facility] Organization [facility] Address Unknown Phone Unavailable Support Name Relationship Address Phone RAKAN VELAZQUEZ MD Caregiver [address] [place] [address] [place] [address] AGNIESZKA LINDSAY MD Caregiver [address] [place], [place] [phone] SHILOH BLEDSOE Next Of Kin [address] [place], [place] [id number] Insurance Providers Payer Name Policy Number Subscriber [...] F (96.8 - 99.1) Temperature (Calculated Celsius) 36.37418 degrees C (36.0 - 37.3) Pulse Rate [...] 15, 2012 1:48pm LAB TEST FORM REQUEST [id number] - Lipase December 02, 2014 7:55am 162 [...] Monoscreen April 30, 2010 3:41am Negative - SY-Apg-Y-Type Natriuretic Peptide June 14, 2012 3:26pm 38 [...] 2008 10:48pm Not Performed - Urine Specific [place] December 02, 2014 8:50am >=1.030 H - [...] Positive Organisms Name: LORI JAMES Unit #: [id number] : [id number] Sex: F Loc / Svc: ED DOS: 12/02/14 Signed Report #: [id number] DIAGNOSTIC IMAGING REPORT TYPE OF EXAM: CT [...] Encounters Encounter Location Date/Time Registered Emergency Room [facility] 12/02/14 7:31am Recent Diagnosis
--- NOTE | 2016-12-16 17:33 | NUR ---
PROVIDER Kevin MENDOZA APRN AT BEDSIDE FOR EXAM.
[2016-12-16] MEDS ORDERED: ACET325T51 PO (17:41)
--- NOTE | 2016-12-16 17:42 | ERPDOC ---
Departure Disposition Decision Date: Dec 16, 2016 Disposition Decision Time: 19:35 Disposition: 01 DISCHARGED HOME, SELF-CARE Impression Impression Impression: Primary Impression: Pancreatitis Condition: Improved Seen By: Mid-level only Referrals: ANYI GOODMAN APRN (Family) Patient Instructions: Pancreatitis (ED) Problems/Meds/Labs Reviewed?: Yes Medications reviewed and manag: Yes Additional Instructions: 1. Continue to drink fluids but avoid heavy meals for 48 hours. Avoid foods that increase abdominal pain. 2. Follow up with Anyi Goodman in the morning regarding your sonogram and lipase level. 3. Return to the ER if you develop increasing abdominal pain or vomiting. Follow up care ordered?: Yes Mental Status: Alert, Oriented HPI - Abdominal Pain General Chief Complaint: Abdominal Pain Stated Complaint: VOMITING/ABD PAIN Time Seen by Provider: 17:36 Source: patient History/Exam Limitations: no limitations HPI - Abdominal Pain Initial Comments Lori is a 51 year old female who was recently hospitalized for strep pharyngitis with sepsis, discharged 12/12/16. Taking Clindamycin 300 mg TID for antibiotic course. Reports developing epigastric discomfort yesterday and has had a few episodes of brown diarrhea. No radiation to RLQ or LLQ. Denies nausea. Denies vomiting. Otherwise reports resolution of sore throat and swallowing problems. No fevers. Appetite has been less but states has been eating with Clindamycin. Does have Zantac she is supposed to be taking at home but can't find the bottle. No prior gallbladder problems, no prior cholecystectomy. Occurred At: home Onset: Getting worse Duration: 12-24 hrs Quality: burning Location: epigastric Radiation: back Activities at Onset: during/after eating Modifying Factors: IMPROVES WITH: lying down, WORSE WITH: eating Associated Symptoms: denies symptoms, DENIES: chest pain, fever/chills, heartburn, nausea/vomiting, shortness of breath Allergies: Coded Allergies: loracarbef (Verified Allergy, Severe, AIRWAY SWELLING, 12/16/16) Penicillins (Verified Allergy, Unknown, HIVES, 12/16/16) lansoprazole (Verified Allergy, Unknown, ECTOPIC BEATS, 12/16/16) aspirin (Verified Adverse Reaction, Unknown, N/V, 12/16/16) Past History Patient Surgical History Tonsillectomy-1984 [id number], 1992 Partial hysterectomy with appendectomy-1997 Bilateral Salpingo-Oophorectomy- 2005 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 De Los Santos) Colonoscopy- 2015 ( [facility]) Bilateral Breast Reduction- 1997 Collagen implants in the Urethra ([place]) Past Medical History Metabolic: cancer (hx leukemia) Respiratory: asthma GI: GERD, IBS Musculoskeletal: back pain Psychological: depression Surgical History General: EGD, appendix, colonoscopy, tonsils Cardiac: cardiac cath Reproductive/: , hysterectomy, other Joint: shoulder Family History Family PMH: FOUND: [place], diabetes, hypertension Vaccines Hx Influenza Vaccination: Yes (fall 2013) Hx Pneumococcal Vaccination: Yes (longer than 5 years ago) Hx Tetanus, Diptheria, Pertuss: No (UNKNOWN) Social History Does patient use chewing tobac: No Second Hand Exposure: No Substance Use Type: does not use Alcohol Intake: none Current Occupational Status: employed Review of Systems Constitutional Constitutional: DENIES: fever Cardiovascular Cardiac: DENIES: chest pain, dyspnea on exertion Pulmonary Respiratory: DENIES: dyspnea GI Upper Abdomen: pain, DENIES: dysphagia, heartburn/indigestion, nausea, vomiting Lower Abdomen: diarrhea Integumentary Skin: DENIES: rash All other Systems All Other Systems: Reviewed and Negative Physical Exam General General Nourishment: appears stated age, no acute distress, obese Vitals and Pain First Documented Vital Signs Date Time Temp Pulse Resp B/P Pulse Ox O2 Delivery O2 Flow Rate FiO2 12/16/16 17:08 97.8 75 18 151/84 98 Room Air Weight: Kilograms: 135.100 Height (feet): 5 Height (inches): 3.00 Triage Pain Scale: Eyes (brief) Eyes Brief: found: PERRL, not found: scleral icterus ENMT (brief) ENMT Brief: FOUND: mucosa moist, NOT FOUND: pharnyx erythema Neck (brief) Neck: NOT FOUND: adenopathy, thyromegaly Respiratory (brief) Respiratory: FOUND: clear all wilkerson, equal bilaterally Cardiovascular (brief) Cardiac: FOUND: regular rate, regular rhythm Abdomen (brief) Abdominal Brief: FOUND: bowel normo active x4, soft, tender (epigastric), NOT FOUND: distended, hepatosplenomegaly, pulsatile mass Lymphatic (brief) Lymphatic Brief: NOT FOUND: lymphedema Integumentary (brief) Integumentary Brief: FOUND: dry, pink, warm, NOT FOUND: rash Psychiatric (brief) Psychiatric Brief: FOUND: alert, attentive, normal affect, oriented Differential Diagnoses Considering: Cholecystitis, Gastroenteritis, GERD, Other (gastritis') Progress Results/Orders Orders Procedure Category Date Status Time G.I. Cocktail PHA 12/16/16 Complete (/Maalox/Lidocaine 17:45 Cbc W/Auto LAB 12/16/16 Complete Diff-Reflex Manual Cmp - Comprehensive LAB 12/16/16 Complete Metabolic Lipase LAB 12/16/16 Complete EKG EKG 12/16/16 Taken Us Gallbladder US 12/16/16 Logged Lab Results Laboratory Tests Test 12/16/16 17:55 White Blood Count 21.5T/MM3 Red Blood Count 4.53M/MM3 Hemoglobin 13.9GM/DL Hematocrit 42.4% Mean Corpuscular Volume 93.6UM3 Mean Corpuscular Hemoglobin 30.7UUG Mean Corpuscular Hemoglobin Concent 32.8GM/DL RDW Standard Deviation 48.9FL Platelet Count 443T/MM3 Mean Platelet Volume 9.2UM3 Immature Granulocyte % (Auto) % Neutrophils (%) (Auto) % Lymphocytes (%) (Auto) % Monocytes (%) (Auto) % Eosinophils (%) (Auto) % Basophils (%) (Auto) % Absolute Immature Granulocyte (auto T/MM3 Absolute Neutrophils (auto) T/MM3 Absolute Lymphocytes (auto) T/MM3 Absolute Monocytes (auto) T/MM3 Absolute Eosinophils (auto) T/MM3 Absolute Basophils (auto) T/MM3 Neutrophils % (Manual) 37.0% Band Neutrophils % 1.0% Lymphocytes % (Manual) 41.0% Reactive Lymphocytes % 2.0% Monocytes % (Manual) 14.0% Eosinophils % (Manual) 3.0% Basophils % (Manual) 1.0% Myelocytes % 1.0% Absolute Neutrophils (Manual) 8.0T/MM3 Band Neutrophils # 0.2T/MM3 Lymphocytes # (Manual) 8.8T/MM3 Reactive Lymphocytes # 0.4T/MM3 Monocytes # (Manual) 3.0T/MM3 Eosinophils # (Manual) 0.6T/MM3 Basophils # (Manual) 0.2T/MM3 Myelocytes # 0.2T/MM3 [place] Bodies 1+ Red Cell Morphology Comment Abnormal Turbidity < 20 Sodium Level 144MEQ/L Potassium Level 4.2MEQ/L Chloride Level 102MEQ/L Carbon Dioxide Level 30MEQ/L Anion Gap 12MEQ/L Blood Urea Nitrogen 17.0MG/DL Creatinine 0.7MG/DL Glomerular Filtration Rate Calc 89 BUN/Creatinine Ratio 24RATIO Glucose Level 95MG/DL Calculated Osmolality 279MOSM/KG Calcium Level 9.0MG/DL Total Bilirubin 0.70MG/DL Icterus Index < 2 Aspartate Amino Transf (AST/SGOT) 14U/L Alanine Aminotransferase (ALT/SGPT) 31U/L Alkaline Phosphatase 73U/L Total Protein 6.4G/DL Albumin 3.4G/DL Globulin 3.0G/DL Albumin/Globulin Ratio 1.1RATIO Lipase 588U/L Chemistry Specimen Hemolysis < 15 Medications Current ED Medications Pharmacy Profile Note (/Maalox/ Lidocaine Soln) 30 ml O ONCE PO Last administered on 12/16/16t 17:44; Start 12/16/16 at 17:45; Stop 12/16/16 at 17:46 ; Status DC Progress Progress 1744- GI cocktail given 1800 - Pain free. 1834 - Labwork reviewed. WBC 21.5, but down from last read on 12/12. Lipase 588. No prior hx pancreatitis. GB sono ordered. 1929 - Patient's pain subsided. No further n/v. Feeling pretty good. Discussed elevated lipase and normal Gb sono with patient. She feels able to go home with outpatient f/u. Discussed option of calling hospitalist service to consider admit. At this time, patient feels she can successfully go home and try bowel rest and f/u with Anyi Goodman her PCP in the am. Patient recants her earlier statement indicating she has not taken the clindamycin today because she hasn't felt like it, thinking its causing her abdominal distress. Also she reveals hx of possible leukemia. Saw Dr. Wall about a year ago for elevated WBC. Had a EGD/colonoscopy by [facility] and that didn't reveal any abnormalities. No further workup has been done. EKG EKG : Rate: 60-100 Rhythm: sinus [place]: normal QRS: normal Intervals: [address]/T: normal Interpreted by: signing physician Ultrasound US : Ultrasound: Gallbladder US Interpretation: Normal, Faxed Report SARAH MENDOZA APRN Dec 16, 2016 17:42
[2016-12-16] MEDS ORDERED: G.I. COCKTAIL 30ml PO ONE (17:45)
--- NOTE | 2016-12-16 17:51 | NUR ---
LAB AT BEDSIDE FOR BLOOD DRAW.
--- OUTSIDE RECORDS SUMMARY | 2016-12-16 17:52 | XMS REPORT | Continuity of Care Document ---
Author Author [facility] Organization [facility] Address Unknown Phone Unavailable Support Name Relationship Address Phone GUEROVILMA ESCOBEDO DO Caregiver [facility] [address] [address] AGNIESZKA LINDSAY MD Caregiver [address] [place] [address] [phone] KATELIN GOODMAN APRN Caregiver [address] [place] [address] [phone] SHILOH BLEDSOE Next Of Kin [address] [phone] Insurance Providers Payer Name Policy Number Subscriber [...] F (96.8 - 99.1) Temperature (Calculated Celsius) 36.40010 degrees C (36.0 - 37.3) Pulse Rate [...] 15, 2012 1:48pm LAB TEST FORM REQUEST [id number] - Lipase December 02, 2014 7:55am 162 [...] Monoscreen April 30, 2010 3:41am Negative - UC-Krm-X-Type Natriuretic Peptide June 14, 2012 3:26pm 38 [...] 2008 10:48pm Not Performed - Urine Specific [place] December 02, 2014 8:50am >=1.030 H - [...] Positive Organisms Name: LORI JAMES Unit #: [id number] : [id number] Sex: F Loc / Svc: ED DOS: 12/06/14 Signed Report #: [id number] DIAGNOSTIC IMAGING REPORT TYPE OF EXAM: KNEE [...] Encounters Encounter Location Date/Time Departed Emergency Room [facility] 12/06/14 12:11pm Departed Emergency Room [facility] 12/02/14 7:31am Recent Diagnosis
--- OUTSIDE RECORDS SUMMARY | 2016-12-16 17:53 | XMS REPORT | Continuity of Care Document ---
Author Author [facility] Organization [facility] Address Unknown Phone Unavailable Support Name Relationship Address Phone RAKAN VELAZQUEZ MD Caregiver [address] [place] [address] [place] [address] AGNIESZKA LINDSAY MD Caregiver [address] [place], [place] [phone] SHILOH BLEDSOE Next Of Kin [address] [place], [place] [phone] Insurance Providers Payer Name Policy Number Subscriber [...] F (96.8 - 99.1) Temperature (Calculated Celsius) 36.18448 degrees C (36.0 - 37.3) Pulse Rate [...] 15, 2012 1:48pm LAB TEST FORM REQUEST [id number] - Lipase December 02, 2014 7:55am 162 [...] Monoscreen April 30, 2010 3:41am Negative - LQ-Ilo-S-Type Natriuretic Peptide June 14, 2012 3:26pm 38 [...] 2008 10:48pm Not Performed - Urine Specific [place] December 02, 2014 8:50am >=1.030 H - [...] Positive Organisms Name: LORI JAMES Unit #: [id number] : [id number] Sex: F Loc / Svc: ED DOS: 12/02/14 Signed Report #: [id number] DIAGNOSTIC IMAGING REPORT TYPE OF EXAM: CT [...] Encounters Encounter Location Date/Time Registered Emergency Room [facility] 12/02/14 7:31am Recent Diagnosis
--- NOTE | 2016-12-16 18:00 | NUR ---
STATUS PT RESTING COMFORTABLY IN CART WITH PHONE IN HAND. CONTINUES TO DENY PAIN, BUT REPORTS FEELS LIKE GI COCKTAIL HAS HELPED. VSS. CALL LIGHT WITHIN REACH, WILL CONTINUE TO MONITOR.
[2016-12-16 18:03] LABS: HCT - HEMATOCRIT 42.4 % (36-46); HGB - HEMOGLOBIN 13.9 GM/DL (12-16); MEAN CORPUSCULAR HGB 30.7 UUG (26-34); MEAN CORPUSCULAR HGB CONC(MCHC 32.8 GM/DL (31-37); MEAN CORPUSCULAR VOLUME 93.6 UM3 (80-100); MEAN PLATELET VOLUME 9.2 UM3 (9.4-12.4); RED BLOOD COUNT 4.53 M/MM3 (4.00-5.20); WBC - WHITE BLOOD COUNT 21.5 T/MM3 (4.5-11.0)
[2016-12-16 18:28] LABS: ALBUMIN 3.4 G/DL (3.5-5.0); ALBUMIN/GLOBULIN RATIO 1.1 RATIO (1.1-2.2); ALKALINE PHOSPHATASE 73 U/L (38-126); ALT (SGPT) 31 U/L (9-52); ANION GAP 12 MEQ/L (5-15); AST (SGOT) 14 U/L (14-36); BUN/CREATININE RATIO 24 RATIO (6-26); CHLORIDE 102 MEQ/L (98-107); CO2 - CARBON DIOXIDE 30 MEQ/L (22-30); CREATININE 0.7 MG/DL (0.7-1.2); GLOMERULAR FILTRATION RATE 89; GLUCOSE 95 MG/DL (65-110); LIPASE 588 U/L (23-300); POTASSIUM 4.2 MEQ/L (3.6-5); SODIUM 144 MEQ/L (134-144); TOTAL PROTEIN 6.4 G/DL (6.3-8.2)
[2016-12-16 18:36] LABS: BAND NEUTROPHILS # 0.2 T/MM3; BASOPHILS # (MANUAL) 0.2 T/MM3 (0-0.2); EOSINOPHILS # (MANUAL) 0.6 T/MM3 (0-0.5); LYMPHOCYTES # (MANUAL) 8.8 T/MM3 (1-4.8); MYELOCYTES # 0.2 T/MM3; REACTIVE LYMPHOCYTES # 0.4 T/MM3 (0-0); TOTAL CELLS COUNTED 100 %
[2016-12-16 18:37] LABS: HOWELL-JOLLY BODIES 1+
--- NOTE | 2016-12-16 18:38 | NUR ---
PROVIDER Kevin MENDOZA APRN AT BEDSIDE TO SPEAK WITH PT.
--- NOTE | 2016-12-16 18:42 | NUR ---
SONO AT BEDSIDE.
--- NOTE | 2016-12-16 19:02 | NUR ---
STATUS PT APPEARS TO BE RESTING COMFORTABLY IN CART. CONTINUES TO DENY PAIN. ADVISED WILL WAIT FOR SONO REPORT. DENIES ANY NEEDS AT THIS TIME. CALL LIGHT WITHIN REACH, WILL CONTINUE TO MONITOR.
--- NOTE | 2016-12-16 19:19 | NUR ---
PROVIDER Kevin MENDOZA APRN AT BEDSIDE TO SPEAK WITH PT.
[2016-12-16 19:44] VITALS: BP 139/86; PULSE 69; RESP 18; TEMP 97.8; O2SAT 96
--- NOTE | 2016-12-16 19:44 | NUR ---
DISCHARGE WRITTEN INSTRUCTIONS REVIEWED AND SENT WITH PT. PT ADVISED TO RETURN TO ER WITH WORSENING PAIN OR VOMITING AND TO F/U WITH PCP TOMORROW. PT VERBALIZES UNDERSTANDING OF DI, DENIES QUESTIONS. PT CONTINUES TO DENY PAIN AT THIS TIME. PT AMBULATES OUT OF ER WITH STEADY GAIT AT THIS TIME.
--- NOTE | 2016-12-17 08:09 | DI ---
Indication: ITS.REASON: epigastric pain, elevated lipase PROCEDURE: US GALLBLADDER: Encounter: Initial Comparison: December 16, 2015 Technique: Grayscale and color Doppler sonographic imaging of the right upper quadrant of the abdomen was performed. Findings: Hepatic parenchyma is sonographically dense without evidence for focal mass. The gallbladder is normal. There is no wall thickening, pericholecystic fluid, sonographic Green's sign or cholelithiasis. Both the intra and extrahepatic biliary system are of normal caliber with the common duct measuring 4 mm in dimension. Visualized portions of the head and body of the pancreas are unremarkable. The right kidney is present without collecting system dilatation. The right kidney measures 10.8 cm in length. Impression: Normal gallbladder. Possible hepatic steatosis. There is a preliminary report by [facility]. .
== END 2016-12-16 19:44 | disposition home or self-care (01) ==
LOC: ED 17:05
DX: K85.90 Acute pancreatitis without necrosis or infection, unspecified (principal)
CPT/HCPCS: 36415; 80053; 83690; 85025; 93005

== ENCOUNTER → 2016-12-17 | Outpatient (CLI) | payer SELFPAY ==
[~2016-12-17] MED LIST changes: +ACET325T51 PO; -DEXA2TAB PO
[2016-12-17 17:17] LABS: HCT - HEMATOCRIT 45.1 % (36-46); HGB - HEMOGLOBIN 14.5 GM/DL (12-16); MEAN CORPUSCULAR HGB 30.1 UUG (26-34); MEAN CORPUSCULAR HGB CONC(MCHC 32.2 GM/DL (31-37); MEAN CORPUSCULAR VOLUME 93.6 UM3 (80-100); MEAN PLATELET VOLUME 9.3 UM3 (9.4-12.4); RED BLOOD COUNT 4.82 M/MM3 (4.00-5.20); WBC - WHITE BLOOD COUNT 18.4 T/MM3 (4.5-11.0)
[2016-12-17 17:23] LABS: LACTATE - LACTIC ACID 1.3 MMOL/L (0.6-2.2)
[2016-12-17 17:32] LABS: LYMPHOCYTES # (MANUAL) 7.5 T/MM3 (1-4.8); NEUTROPHILS #(MANUAL)-ABSOLUTE 8.1 T/MM3 (1.8-7.7); REACTIVE LYMPHOCYTES # 1.3 T/MM3 (0-0)
[2016-12-17 17:33] LABS: EOSINOPHILS # (MANUAL) 0.6 T/MM3 (0-0.5); MONOCYTES # (MANUAL) 0.9 T/MM3 (0-0.8)
[2016-12-17 17:34] LABS: HOWELL-JOLLY BODIES 1+
== END ==
LOC: LAB 16:20
PROVIDERS: ATTEND Registered Nurse
DX: D72.829 Elevated white blood cell count, unspecified (principal); R79.9 Abnormal finding of blood chemistry, unspecified
CPT/HCPCS: 36415; 82150; 83605; 83690; 85025; 85652

== ENCOUNTER → 2017-01-10 | Outpatient (CLI) | payer SELFPAY ==
[~2017-01-10] MED LIST changes: +BUPIVACAINE 0.5% (5mg/ml) 30ml INJ SDV ONE; +LIDOCAINE 1% (10mg/ml) 5ml VIAL ONE
--- NOTE | 2017-01-10 17:11 | DI ---
Indication:ITS.REASON: D72.820 Lymphocytosis; D72.829 Elevated white blood cell count Procedure:CT BIOPSY BONE PELVIS (MARROW) CT GUIDED BONE MARROW BIOPSY/ASPIRATION: The procedure including the benefits, risks, and alternatives were explained in detail to the patient. All of her questions were answered. They stated that they understood and wished to proceed. Informed consent was obtained. A pre-procedural timeout was done to verify the correct patient and procedure. Using sterile technique, local Xylocaine and Marcaine anesthesia, and CT guidance, an 11-gauge bone biopsy needle is advanced from a posterior approach into the right iliac bone. Approximately 10 cc of marrow is aspirated and a core biopsy was then taken. The needle was removed. There was no complication. Hemostasis was obtained and a compression bandage was applied. Following this, the patient was monitored in the CT department for 15 min. They then left the radiology department in good condition. Impression: Technically successful bone marrow biopsy from the posterior aspect of the right iliac bone. Manjit Hidalgo RPA/ILEANA performed this under my personal supervision. .
== END ==
LOC: IMA 10:22
PROVIDERS: ATTEND Internal Medicine Medical Oncology
DX: D72.820 Lymphocytosis (symptomatic) (principal); D72.829 Elevated white blood cell count, unspecified
CPT/HCPCS: 38221

== ENCOUNTER 2017-02-01 21:28 | Emergency (ER) | payer SELFPAY ==
[~2017-02-01] VITALS: Ht 160 cm; Wt 134.0 kg
[~2017-02-01 21:28] MED LIST changes: -BUPIVACAINE 0.5% (5mg/ml) 30ml INJ SDV ONE; -LIDOCAINE 1% (10mg/ml) 5ml VIAL ONE
[2017-02-01 21:30] VITALS: Ht 160 cm; Wt 134.0 kg
--- OUTSIDE RECORDS SUMMARY | 2017-02-01 21:34 | XMS REPORT | Continuity of Care Document ---
Author Author [facility] Organization [facility] Address Unknown Phone Unavailable Support Name Relationship Address Phone ANYI GOODMAN SILICA FILTER OPERATOR Caregiver [address] [place] [address] Unavailable WENDY BROOKS DO Caregiver [address] [place] [address] Unavailable SHA COSTELLO Next Of Kin [address] [place], [place] [phone] Insurance Providers Guarantor Lori James Address [address] [place] [address] Email [email or web address] Payer Self Pay Subscriber's Name Lori James Relationship 18 Self Advance Directives Directive Response Recorded Date/Time Advanced Directives Type None 12/16/16 5:08pm Chief Complaint and Reason for Visit Chief Complaint Abdominal Pain Reason for Visit Pancreatitis Problems Active Problems Medical Problem Onset Date [...] Onset Date Bilateral upper abdominal pain Unknown Pancreatitis Unknown Tonsillitis Unknown Umbilical hernia without obstruction or gangrene Unknown Ventral hernia without obstruction or gangrene Unknown Medications Current Home Medications Medication Dose Units Route Directions Days Qty Instructions Start Date Acetaminophen 325 Mg Tablet 2 Tab Oral Every 6 Hours as needed for Pain Do not exceed 3,200 mg of acetaminophen in a 24 hours period. 12/16/16 Albuterol Sulfate (Ventolin Hfa) 18 Gm Hfa.aer.ad 1 Puff Inhalation As Needed 04/03/12 Clindamycin Hcl 300 Mg Capsule 1 Cap Oral Three Times A Day 30 Capsule TAKE WITH A FULL GLASS OF WATER TO AVOID ESOPHAGEAL IRRITATION. 12/11/16 Fluoxetine Hcl (Prozac) 20 Mg Capsule 20 Mg Oral Daily 02/24/15 Fluticasone/Salmeterol (Advair 250-50 Diskus) 1 Disk W/Dev Inhaler 2 Puff Oral Inhalation Daily 10/21/15 Furosemide 20 Mg Tablet 10 Mg Oral Daily 12/09/16 Lisinopril 5 Mg Tablet 5 Mg Oral Bedtime 10/21/15 Ranitidine Hcl 150 Mg Capsule 150 Mg Oral Daily as needed for Prn Orders 02/24/15 Tiotropium [place] (Spiriva) 1 Cap Inhaler 1 Cap Oral [...] Problem Response Recorded Date/Time Onset Date Status Hx Substance Use No 12/16/2016 5:14pm Not Applicable Not Applicable Hx Alcohol Use No 12/16/2016 5:14pm Not Applicable Not Applicable Has the pt used tobacco in the last 12 months No 12/09/2016 1:10pm Not Applicable Not Applicable Tobacco Usage none 12/02/2014 7:53am Not Applicable Not Applicable Query Response Start Date Stop Date Smoking Status Never smoker Hospital Discharge Instructions No hospital discharge instructions. Plan of Care Discharge Date 12/16/16 7:44pm Disposition 01 DISCHARGED HOME, SELF-CARE Condition at Discharge Improved Instructions/Education Provided Pancreatitis (ED) Prescriptions See Medication Section Referrals ANYI GOODMAN APRN Address: [address] [place], [place] [phone] Additional Instructions/Education 1. Continue to drink fluids but avoid heavy meals for 48 hours. Avoid foods that increase abdominal pain. 2. Follow up with Anyi Goodman in the morning regarding your sonogram and lipase level. 3. Return to the ER if you develop increasing abdominal pain or vomiting. Care Plan and Goals Physician Care Plan Problem: Pancreatitis Goal: Follow up with primary care provider Instructions: Take medications and follow care plan as discussed/written Functional Status No functional status results. Allergies, Adverse Reactions, Alerts Allergen Type Severity Reaction Status Last Updated Penicillin Allergy Unknown HIVES Active 12/16/16 Aspirin Adverse Reaction Unknown N/V Active 12/16/16 Loracarbef Allergy Severe AIRWAY SWELLING Active 12/16/16 Lansoprazole Allergy Unknown ECTOPIC BEATS Active 12/16/16 Immunizations Immunization Event Date Type Not Given Reason Dose Number Lot Number Proof Coins Inspector VIS Given Influenza, seasonal, injectable 12/10/16 Not [...] Vital Signs Vital Response Date/Time Temperature (Fahrenheit) 97.8 deg F (96.8 - 99.1) 12/16/2016 7:44pm Temperature (Calculated Celsius) 36.51242 degrees C (36.0 - 37.3) 12/16/2016 7:44pm Pulse Rate (adult) 69 bpm (60 - 100) 12/16/2016 7:44pm Respiratory Rate 18 breaths/min (10 - 20) 12/16/2016 7:44pm O2 Sat by Pulse Oximetry 96 % (90 - 100) 12/16/2016 7:44pm Oxygen Delivery Method Nasal Cannula 12/10/2016 8:03am Oxygen Delivery Method Room Air 12/11/2016 8:00am Oxygen Flow Rate 1.00 L/min 12/10/2016 8:03am Blood Pressure 139/86 mm Hg 12/16/2016 7:44pm Blood Pressure Source Automatic Cuff 12/11/2016 8:00am Height (Feet) 5 feet 12/16/2016 5:08pm Height (Inches) 3.00 inches 12/16/2016 5:08pm Weight (Kilograms) 135.100 kg 12/16/2016 5:08pm Body Mass Index (BMI) 52.0 12/16/2016 5:08pm Results Laboratory Results Test Name Result Units Flags Reference Collection Date/Time Result Date/ Time Comments Plasma Lactate 1.3 MMOL/L 0.6-2.2 12/09/2016 6:31pm [...] B protein antigen. Assay sensitivity is 90%. White Blood Count 21.5 T/MM3 H 4.5-11.0 12/16/2016 5:55pm 12/16/2016 6: 27pm Red Blood Count 4.53 M/MM3 4.00-5.20 12/16/2016 5:55pm 12/16/2016 6: 27pm Hemoglobin 13.9 GM/DL 12-16 12/16/2016 5:55pm 12/16/2016 6:27pm Hematocrit 42.4 % 36-46 12/16/2016 5:55pm 12/16/2016 6:27pm Mean Corpuscular Volume 93.6 UM3 80-100 12/16/2016 5:55pm 12/16/2016 6: 27pm Mean Corpuscular Hemoglobin 30.7 UUG 26-34 12/16/2016 5:55pm 2016 6:27pm Mean Corpuscular Hemoglobin Concent 32.8 GM/DL 31-37 12/16/2016 5:55pm 12/16/2016 6:27pm RDW Standard Deviation 48.9 FL 36.9-50.2 12/16/2016 5:55pm 12/16/2016 6 :27pm Platelet Count 443 T/MM3 H 130-400 12/16/2016 5:55pm 12/16/2016 6:27pm Mean Platelet Volume 9.2 UM3 L 9.4-12.4 12/16/2016 5:55pm 12/16/2016 6: 27pm Neutrophils % (Manual) 37.0 % 33-66 12/16/2016 5:55pm 12/16/2016 6: 37pm Band Neutrophils % 1.0 % 0-6 12/16/2016 5:55pm 12/16/2016 6:37pm Lymphocytes % (Manual) 41.0 % 23-45 12/16/2016 5:55pm 12/16/2016 6: 37pm Monocytes % (Manual) 14.0 % H 0-9.0 12/16/2016 5:55pm 12/16/2016 6:37pm Eosinophils % (Manual) 3.0 % 0-4 12/16/2016 5:55pm 12/16/2016 6:37pm Basophils % (Manual) 1.0 % 0-2 12/16/2016 5:55pm 12/16/2016 6:37pm Myelocytes % 1.0 % H 0-0 12/16/2016 5:55pm 12/16/2016 6:37pm Reactive Lymphocytes % 2.0 % H 0-0 12/16/2016 5:55pm 12/16/2016 6:37pm Band Neutrophils # 0.2 T/MM3 12/16/2016 5:55pm 12/16/2016 6:37pm Absolute Neutrophils (Manual) 8.0 T/MM3 H 1.8-7.7 12/16/2016 5:55pm 6:37pm Lymphocytes # (Manual) 8.8 T/MM3 H 1-4.8 12/16/2016 5:55pm 12/16/2016 6: 37pm Monocytes # (Manual) 3.0 T/MM3 H 0-0.8 12/16/2016 5:55pm 12/16/2016 6: 37pm Eosinophils # (Manual) 0.6 T/MM3 H 0-0.5 12/16/2016 5:55pm 12/16/2016 6: 37pm Basophils # (Manual) 0.2 T/MM3 0-0.2 12/16/2016 5:55pm 12/16/2016 6: 37pm Myelocytes # 0.2 T/MM3 12/16/2016 5:55pm 12/16/2016 6:37pm Reactive Lymphocytes # 0.4 T/MM3 H 0-0 12/16/2016 5:55pm 12/16/2016 6: 37pm Red Cell Morphology Comment ABNORMAL 12/16/2016 5:pm 12/16/2016 6 :37pm Robins-Chance Bodies 1+ 12/16/2016 5:55pm 12/16/2016 6:37pm Icterus Index < 2 0-7 12/16/2016 5:pm 12/16/2016 6:28pm Chemistry Specimen Hemolysis < 15 0-25 12/16/2016 5:55pm 12/16/2016 6 :28pm 0-25: Specimen Exhibited No Hemolysis. Turbidity < 20 0-20 12/16/2016 5:55pm 12/16/2016 6:28pm Sodium Level 144 MEQ/L 134-144 12/16/2016 5:55pm 12/16/2016 6:28pm Potassium Level 4.2 MEQ/L 3.6-5 12/16/2016 5:55pm 12/16/2016 6:28pm Chloride Level 102 MEQ/L 98-107 12/16/2016 5:55pm 12/16/2016 6:28pm Carbon Dioxide Level 30 MEQ/L 22-30 12/16/2016 5:55pm 12/16/2016 6: 28pm Anion Gap 12 MEQ/L 5-15 12/16/2016 5:55pm 12/16/2016 6:28pm Blood Urea Nitrogen 17.0 MG/DL 7-17 12/16/2016 5:55pm 12/16/2016 6: 28pm Creatinine 0.7 MG/DL 0.7-1.2 12/16/2016 5:55pm 12/16/2016 6:28pm BUN/Creatinine Ratio 24 RATIO 6-26 12/16/2016 5:55pm 12/16/2016 6:28pm Glomerular Filtration Rate Calc 89 12/16/2016 5:5512/16/2016 6: 28pm Glucose Level 95 MG/DL 65-110 12/16/2016 5:55pm 12/16/2016 6:28pm Calculated Osmolality 279 MOSM/KG 261-280 12/16/2016 5:pm 12/16/2016 6:28pm Calcium Level 9.0 MG/DL 8.4-10.2 12/16/2016 5:55pm 12/16/2016 6:28pm Total Bilirubin 0.70 MG/DL 0.20-1.30 12/16/2016 5:12/16/2016 6: 28pm Alkaline Phosphatase 73 U/L 38-126 12/16/2016 5:12/16/2016 6:28pm Total Protein 6.4 G/DL 6.3-8.2 12/16/2016 5:pm 12/16/2016 6:28pm Albumin 3.4 G/DL L 3.5-5.0 12/16/2016 5:12/16/2016 6:28pm Globulin 3.0 G/DL 2.4-3.6 12/16/2016 5:12/16/2016 6:28pm Albumin/Globulin Ratio 1.1 RATIO 1.1-2.2 12/16/2016 5:12/16/2016 6 :28pm Aspartate Amino Transf (AST/SGOT) 14 U/L 14-36 12/16/2016 5:55pm 2016 6:28pm Alanine Aminotransferase (ALT/SGPT) 31 U/L 9-52 12/16/2016 5:55pm 12/16 6:28pm Lipase 588 U/L H 23-300 12/16/2016 5:55pm 12/16/2016 6:28pm Microbiology Results Procedure Source Organism/Result Collection Date/Time Result Date/Time Result Status Blood Culture Peripheral/Iv Start NO GROWTH AFTER 5 DAYS 12/09/2016 2:32pm 12/14/2016 2:38pm Final Procedures No known history of procedures. Encounters Encounter Location Arrival/Admit Date Discharge/Depart Date Attending Provider Departed Emergency Room [facility] 12/16/16 5:05pm 12/16/16 7: 44pm WENDY BROOKS DO Discharged Inpatient [facility] 12/09/16 4:52pm 12/11/16 1:35pm SAMMY GIBBS MD Recent Diagnosis
--- OUTSIDE RECORDS SUMMARY | 2017-02-01 21:34 | XMS REPORT | Continuity of Care Document ---
Author Author [facility] Organization [facility] Address Unknown Phone Unavailable Support Name Relationship Address Phone GUEROVILMA ESCOBEDO DO Caregiver [facility] [address] [place] [address] AGNIESZKA LINDSAY MD Caregiver [address] [place] [address] [phone] KATELIN GOODMAN APRN Caregiver [address] [place] [address] [phone] SHILOH BLEDSOE Next Of Kin [address] [phone] Insurance Providers Payer Name Policy Number Subscriber [...] F (96.8 - 99.1) Temperature (Calculated Celsius) 36.16719 degrees C (36.0 - 37.3) Pulse Rate [...] 15, 2012 1:48pm LAB TEST FORM REQUEST [id number] - Lipase December 02, 2014 7:55am 162 [...] Monoscreen April 30, 2010 3:41am Negative - AP-Apu-Q-Type Natriuretic Peptide June 14, 2012 3:26pm 38 [...] 2008 10:48pm Not Performed - Urine Specific [place] December 02, 2014 8:50am >=1.030 H - [...] Positive Organisms Name: LORI JAMES Unit #: [id number] : [id number] Sex: F Loc / Svc: ED DOS: 12/06/14 Signed Report #: [id number] DIAGNOSTIC IMAGING REPORT TYPE OF EXAM: KNEE [...] Encounters Encounter Location Date/Time Departed Emergency Room [facility] 12/06/14 12:11pm Departed Emergency Room [facility] 12/02/14 7:31am Recent Diagnosis
--- OUTSIDE RECORDS SUMMARY | 2017-02-01 21:34 | XMS REPORT | Summary of Care ---
Author Author Bel Yeung, Matt Organization Unknown Address Unknown Phone Unavailable Care Team Providers Care Single End Sewer Name Role Phone Matt Staples M.D. Unavailable Unavailable Anyi Johnson Unavailable Unavailable Functional Status Name Dates Details Functional status health issues are not documented Status: Name Dates Details Cognitive status health issues are not documented Status: Problems Name Dates Details Hypertension (401.9, I10) Status: Active Medications Name Dates Details Advair Diskus 250-50 MCG/DOSE Inhalation Aerosol Powder Breath Activated INHALE 1 PUFF EVERY 12 HOURS. * Start 21-Dec-2016 Active Spiriva HandiHaler 18 MCG Inhalation Capsule INHALE CONTENTS OF 1 CAPSULE ONCE DAILY. * Refills: 0 * Start 21-Dec-2016 Active Albuterol Sulfate (2.5 MG/3ML) 0.083% Inhalation Nebulization Solution USE DIRECTED. * Refills: 0 * Start 21-Dec-2016 Active Lasix 20 MG Oral Tablet 10mg daily * Refills: 0 * Start 21-Dec-2016 Active PROzac 20 MG Oral Capsule 1 capsule daily * Refills: 0 * Start 21-Dec-2016 Active Singulair 10 MG Oral Tablet TAKE 1 TABLET DAILY. * Refills: 0 * Start 21-Dec-2016 Active Allergies and Adverse Reactions Name Dates Details aspirin (Allergy) Status: Active Lorabid (Allergy) Status: Active Penicillins (Allergy) Status: Active Prevacid (Allergy) Status: Active Past Medical History Name Dates Details History of Environmental and seasonal allergies (477.8, J30.89) Status: Resolved Procedures Procedure Dates Details History of Tonsillectomy History of Section History of Breast Surgery Reduction Procedure History of Splenectomy History of Hysterectomy History of Rotator Cuff Repair Procedures not documented Immunization Name Dates Details Immunizations not documented Family History Name Dates Details Family history of kidney disease (V18.69, Z84.1) Status: Active Name Dates Details Family history of cardiac disorder (V17.49, Z82.49) Status: Active Family history of hypertension (V17.49, Z82.49) Status: Active Family history of diabetes mellitus (V18.0, Z83.3) Status: Active Name Dates Details Family history of lung disease (V19.8, Z83.6) Status: Active Name Dates Details Family history of cardiac disorder (V17.49, Z82.49) Status: Active Social History Name Dates Details - Status: Name Dates Details Never smoker Vital Signs Date Test Result Details 21-Dec-2016 13:59 Temperature 98.6 f Status: Comments: Method: Heart Rate 82 /min Status: Comments: Location: ; Physical Findings 22 Status: Comments: Respiration Height 63 in Status: Weight 296.8 lb Status: Physical Findings 94 Status: Comments: O2 Saturation Body Mass Index Calculated 52.58 kg/m2 Status: Body Surface Area Calculated 2.29 m2 Status: Results Date Description Value Details Results not documented Plan of Care Name Dates Details Planned Observations Planned Goals not documented Instructions Name Dates Details Instructions not documented Encounters Appointment; Matt Staples M.D. Encounter Diagnosis: Problem not documented On 21-Dec-2016 13:00
--- OUTSIDE RECORDS SUMMARY | 2017-02-01 21:35 | XMS REPORT | Continuity of Care Document ---
Author Author [facility] Organization [facility] Address Unknown Phone Unavailable Support Name Relationship Address Phone RAKAN VELAZQUEZ MD Caregiver [address] [place] [address] [place] [address] AGNIESZKA LINDSAY MD Caregiver [address] [place], [place] [phone] SHILOH BLEDSOE Next Of Kin [address] [place], [place] [phone] Insurance Providers Payer Name Policy Number Subscriber [...] F (96.8 - 99.1) Temperature (Calculated Celsius) 36.52967 degrees C (36.0 - 37.3) Pulse Rate [...] 15, 2012 1:48pm LAB TEST FORM REQUEST [id number] - Lipase December 02, 2014 7:55am 162 [...] Monoscreen April 30, 2010 3:41am Negative - UA-Luk-F-Type Natriuretic Peptide June 14, 2012 3:26pm 38 [...] 2008 10:48pm Not Performed - Urine Specific [place] December 02, 2014 8:50am >=1.030 H - [...] Positive Organisms Name: LORI JAMES Unit #: [id number] : [id number] Sex: F Loc / Svc: ED DOS: 12/02/14 Signed Report #: [id number] DIAGNOSTIC IMAGING REPORT TYPE OF EXAM: CT [...] Encounters Encounter Location Date/Time Registered Emergency Room [facility] 12/02/14 7:31am Recent Diagnosis
--- OUTSIDE RECORDS SUMMARY | 2017-02-01 21:40 | XMS REPORT | Continuity of Care Document ---
Author Author [facility] Organization [facility] Address Unknown Phone Unavailable Support Name Relationship Address Phone RAKAN VELAZQUEZ MD Caregiver [address] [place] [address] [place] [address] AGNIESZKA LINDSAY MD Caregiver [address] [place], [place] [phone] SHILOH BLEDSOE Next Of Kin [address] [place], [place] [phone] Insurance Providers Payer Name Policy Number Subscriber [...] F (96.8 - 99.1) Temperature (Calculated Celsius) 36.68808 degrees C (36.0 - 37.3) Pulse Rate [...] 15, 2012 1:48pm LAB TEST FORM REQUEST [id number] - Lipase December 02, 2014 7:55am 162 [...] Monoscreen April 30, 2010 3:41am Negative - LW-Vbn-L-Type Natriuretic Peptide June 14, 2012 3:26pm 38 [...] 2008 10:48pm Not Performed - Urine Specific [place] December 02, 2014 8:50am >=1.030 H - [...] Positive Organisms Name: LORI JAMES Unit #: [id number] : [id number] Sex: F Loc / Svc: ED DOS: 12/02/14 Signed Report #: [id number] DIAGNOSTIC IMAGING REPORT TYPE OF EXAM: CT [...] Encounters Encounter Location Date/Time Registered Emergency Room [facility] 12/02/14 7:31am Recent Diagnosis
--- OUTSIDE RECORDS SUMMARY | 2017-02-01 21:40 | XMS REPORT | Continuity of Care Document ---
Author Author [facility] Organization [facility] Address Unknown Phone Unavailable Support Name Relationship Address Phone GUEROVILMA ESCOBEDO DO Caregiver [facility] [address] [place] [address] AGNIESZKA LINDSAY MD Caregiver [address] [place] [address] [phone] KATELIN GOODMAN APRN Caregiver [address] [place] [address] [phone] SHILOH BLEDSOE Next Of Kin [address] [phone] Insurance Providers Payer Name Policy Number Subscriber [...] F (96.8 - 99.1) Temperature (Calculated Celsius) 36.79996 degrees C (36.0 - 37.3) Pulse Rate [...] 15, 2012 1:48pm LAB TEST FORM REQUEST [id number] - Lipase December 02, 2014 7:55am 162 [...] Monoscreen April 30, 2010 3:41am Negative - KP-Qps-C-Type Natriuretic Peptide June 14, 2012 3:26pm 38 [...] 2008 10:48pm Not Performed - Urine Specific [place] December 02, 2014 8:50am >=1.030 H - [...] Positive Organisms Name: LORI JAMES Unit #: [id number] : [id number] Sex: F Loc / Svc: ED DOS: 12/06/14 Signed Report #: [id number] DIAGNOSTIC IMAGING REPORT TYPE OF EXAM: KNEE [...] Encounters Encounter Location Date/Time Departed Emergency Room [facility] 12/06/14 12:11pm Departed Emergency Room [facility] 12/02/14 7:31am Recent Diagnosis
--- NOTE | 2017-02-01 21:48 | ERPDOC ---
Departure Disposition Decision Date: February 01, 2017 Disposition Decision Time: 22:04 Disposition: 01 DISCHARGED HOME, SELF-CARE Impression Impression Impression: Primary Impression: UTI (urinary tract infection) Condition: Stable Seen By: Mid-level only Referrals: ANYI GOODMAN APRN (Family) Patient Instructions: Urinary Tract Infection in Women (ED) Problems/Meds/Labs Reviewed?: Yes Medications reviewed and manag: Yes Additional Instructions: 1. Take all antibiotics as prescribed for entire course 2. A culture is being performed on your urine. It is important you follow up with Anyi Goodman in 48 hours for results of this culture. 3. Return to ER or clinic if you develop fever > 101.5, severe back pain or vomiting that will not stop after 24 hours. Follow up care ordered?: Yes Mental Status: Alert, Oriented Scripts Phenazopyridine HCl (Pyridium) 200 Mg Tablet 190 MG PO TID Y for URINARY PAIN for 3 Days, #9 TAB Take 1 tabs, by mouth, 3 times a day as needed. Prov: SARAH MENDOZA APRN 02/01/17 Ciprofloxacin HCl (Cipro) 500 Mg Tablet 500 MG PO Q12HR for 7 Days, #14 TAB Prov: SARAH MENDOZA APRN 02/01/17 HPI - Female General Chief Complaint: Female Urogenital Problems Stated Complaint: POSS UTI Time Seen by Provider: 21:30 Source: patient Exam Limitations: no limitations HPI - Female Initial Comments Lori is a 52-year-old female who comes the emergency department with chief complaint "tingling" when she urinates. Symptoms started 1 week ago. Tonight, reports contacting her primary care provider Jocelynn Goodman via message and was advised to get herself checked out. Patient didn't feel like she could wait until tomorrow morning and go to the clinic. Reports 4 episodes of vomiting first thing this morning but none the rest of the day. Denies diarrhea. Monument chills this afternoon but no documented fever. Denies abdominal pain. Denies back pain. Occurred At: home Onset: Getting worse Duration: 1 week Severity/Quality: other (tingling) Location: urethral Radiation: none Activities at Onset: none Associated Symptoms: fever/chills (subjective), nausea/vomiting Allergies: Coded Allergies: loracarbef (Verified Allergy, Severe, AIRWAY SWELLING, 12/16/16) Penicillins (Verified Allergy, Unknown, HIVES, 12/16/16) lansoprazole (Verified Allergy, Unknown, ECTOPIC BEATS, 12/16/16) aspirin (Verified Adverse Reaction, Unknown, N/V, 12/16/16) Past History Patient Surgical History Tonsillectomy-1984 [id number], 1992 Partial hysterectomy with appendectomy-1997 Bilateral Salpingo-Oophorectomy- 2005 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 De Los Santos) Colonoscopy- 2015 ( [facility]) Bilateral Breast Reduction- 1997 Collagen implants in the Urethra ([place]) Past Medical History Metabolic: cancer Respiratory: asthma GI: GERD, IBS Musculoskeletal: back pain Psychological: depression Surgical History General: EGD, appendix, colonoscopy, tonsils Cardiac: cardiac cath Reproductive/: , hysterectomy, other Joint: shoulder Family History Family PMH: FOUND: [place], diabetes, hypertension Vaccines Hx Influenza Vaccination: Yes (fall 2013) Hx Pneumococcal Vaccination: Yes (longer than 5 years ago) Hx Tetanus, Diptheria, Pertuss: No (UNKNOWN) Social History Smoking Status: Never smoker Does patient use chewing tobac: No Second Hand Exposure: No Substance Use Type: does not use Alcohol Intake: none Current Occupational Status: unemployed Review of Systems Constitutional Constitutional: chills GI Upper Abdomen: nausea, vomiting Lower Abdomen: DENIES: diarrhea General: dysuria, frequency Musculoskeletal General: DENIES: pain All other Systems All Other Systems: Reviewed and Negative Physical Exam General General Nourishment: appears stated age, no acute distress, obese Vitals and Pain First Documented Vital Signs Date Time Temp Pulse Resp B/P Pulse Ox O2 Delivery O2 Flow Rate FiO2 02/01/17 21:30 98.2 93 20 147/76 98 Room Air Weight: Kilograms: Height (feet): 5 Height (inches): 3.00 Triage Pain Scale: ENMT (brief) ENMT Brief: FOUND: mucosa moist Respiratory (brief) Respiratory: FOUND: clear all wilkerson, equal bilaterally Cardiovascular (brief) Cardiac: FOUND: regular rate, regular rhythm Abdomen (brief) Abdominal Brief: FOUND: bowel normo active x4, soft, NOT FOUND: distended, pulsatile mass, tender Lymphatic (brief) Lymphatic Brief: NOT FOUND: lymphedema Integumentary (brief) Integumentary Brief: FOUND: dry, pink, warm Psychiatric (brief) Psychiatric Brief: FOUND: alert, attentive, normal affect, oriented Differential Diagnoses Considering: UTI Progress Results/Orders Orders Procedure Category Date Status Time UA, LAB 02/01/17 Complete Dip&Micro(Complete) & 21:37 Urine Culture CHAYO 02/01/17 In Process 21:58 Lab Results Laboratory Tests Test 02/01/17 21:37 Urine Collection Type Urine Color Yellow Urine Turbidity Cloudy Urine pH 6.0 Urine Specific Elizabeth >=1.030 Urine Protein 2+ Urine Glucose (UA) Negative Urine Ketones Negative Urine Blood 3+ Urine Nitrite Positive Urine Bilirubin Negative Urine Urobilinogen 0.2EU/DL Urine Leukocyte Esterase 1+ Urine RBC 10-20/HPF Urine WBC 50-200/HPF Urine Squamous Epithelial Cells 5-10 Urine Bacteria 2+ Urine Mucus Present Urine Culture Indicated Cult reflexed &setup SARAH MENDOZA APRN February 01, 2017 21:48
[2017-02-01 21:52] LABS: BLOOD, URINE 3+ (NEGATIVE); COLOR,URINE YELLOW (YELLOW); LEUKOCYTE ESTERASE ,URINE 1+ (NEGATIVE); NITRITE,URINE POSITIVE (NEGATIVE); UROBILINOGEN,URINE 0.2 EU/DL (NORMAL)
[2017-02-01 21:58] LABS: BACTERIA,URINE 2+ (NEGATIVE); MUCUS,URINE PRESENT; WBC,URINE 50-200 /HPF (0-5)
[2017-02-01] MEDS ORDERED: PHEN-779 PO (22:07)
[2017-02-01] MEDS ORDERED: CIPR-212 PO (22:07)
[2017-02-01] MEDS ORDERED: CIPROFLOXACIN 500 MG TABLET PO ONE (22:15)
[2017-02-01] MEDS ORDERED: PHENAZOPYRIDINE 95 MG TABLET PO ONE (22:15)
[2017-02-01 22:16] VITALS: BP 119/74; PULSE 78; RESP 20; TEMP 98.2; O2SAT 93
--- NOTE | 2017-02-01 22:16 | NUR ---
DEPART PT GIVEN DI FOR UTI IN WOMEN, CIPRO, PYRIDIUM, F/U. RX PROVIDED FOR CIPRO AND PYRIDIUM. VERBLIZES UNDERSTANDING OF DI, MEDS, F/U. QUESTIONS ASKED/ANSWERED - DENIES FURTHER QUESTIONS/NEEDS AT THIS TIME. PERSONAL BELONGING GATHERED. PT AMBULATED/ESCORTED TO ED EXIT - GAIT STABLE, NO SIGN OF DISTRESS AT THIS TIME.
== END 2017-02-01 22:16 | disposition home or self-care (01) ==
LOC: ED 21:28
DX: N39.0 Urinary tract infection, site not specified (principal)
CPT/HCPCS: 81001; 87086